=== PATIENT | female | born 1970 | race Caucasian/White ===

== ENCOUNTER 2019-02-16 16:15 | Emergency (ER) | payer OTHER ==
[~2019-02-16] VITALS: Ht 160 cm; Wt 112.0 kg
--- OUTSIDE RECORDS SUMMARY | ~2019-02-16 | XMS | Clinical Summary ---
Demographics + + + | Address | [address] | | | [place] [address] | + + + | Home Phone | | + + + | Preferred Language | Unknown | + + + | Marital Status | Single | + + + | Worship Affiliation | Unknown | + + + | Race | Unknown | + + + | Ethnic Group | Unknown | + + + Author + + + | Author | [facility] | | | and [place] | + + + | Organization | [facility] | | | and [place] | + + + | Address | Unknown | + + + | Phone | Unavailable | + + + Support + + +---------+ + | Name | Relationship | Address | Phone | + + +---------+ + | Brown Wright | ECON | Unknown | | + + +---------+ + Care Team Providers + +------+ + | Care Correspondence Dictator Name | Role | Phone | + +------+ + PP | Unavailable | + +------+ + Allergies + + + + + + | Active Allergy | Reactions | Severity | Noted | Comments | | | | | Date | | + + + + + + | Oxycodone | | | 05/29/20 | | | | | | 11 | | + + + + + + Medications + + + +---------+------+------+-------+ | Medication | Sig | Dispensed | Refills | Star | End | Statu | | | | | | t | Date | s | | | | | | Date | | | + + + +---------+------+------+-------+ | Omeprazole | 20 mg by mouth daily | | 0 | 10/0 | | Activ | | Magnesium (PRILOSEC | | | | 5/20 | | e | | OTC PO) | | | | 12 | | | + + + +---------+------+------+-------+ | sertraline | Take 50 mg by mouth | | 0 | 10/0 | | Activ | | (ZOLOFT) 50 mg | Daily. | | | 5/20 | | e | | tablet | | | | 12 | | | + + + +---------+------+------+-------+ | METFORMIN HCL | 500 mg by mouth | | 0 | 10/0 | | Activ | | | daily | | | 5/20 | | e | | | | | | 12 | | | + + + +---------+------+------+-------+ | COLESTIPOL HCL | as needed | | 0 | 10/0 | | Activ | | | | | | 5/20 | | e | | | | | | 12 | | | + + + +---------+------+------+-------+ | | as needed | | 0 | 10/0 | | Activ | | Fyjadroall-TQAI-Pgyu | | | | 5/20 | | e | | eine (ESGIC PO) | | | | 12 | | | + + + +---------+------+------+-------+ | DiphenhydrAMINE | as needed | | 0 | 10/0 | | Activ | | HCl (BENADRYL PO) | | | | 5/20 | | e | | | | | | 12 | | | + + + +---------+------+------+-------+ | | Take 75-50 mg by | | 0 | 10/0 | | Activ | | triamterene-hydrochl | mouth Daily. | | | 5/20 | | e | | orothiazide | | | | 12 | | | | (MAXZIDE) 75-50 mg | | | | | | | | per tablet | | | | | | | + + + +---------+------+------+-------+ | MAGNESIUM | one by mouth two | | 0 | 10/0 | | Activ | | | times daily | | | 5/20 | | e | | | | | | 12 | | | + + + +---------+------+------+-------+ | Cholecalciferol | one by mouth daily | | 0 | 10/0 | | Activ | | (D-2000 MAXIMUM | | | | 5/20 | | e | | STRENGTH PO) | | | | 12 | | | + + + +---------+------+------+-------+ | Calcium | one by mouth two | | 0 | 10/0 | | Activ | | Carbonate-Vitamin D | times daily | | | 5/20 | | e | | (CALTRATE 600+D PO) | | | | 12 | | | + + + +---------+------+------+-------+ | potassium chloride | Take 8 mEq by mouth | | 0 | 10/0 | | Activ | | (KLOR-CON) 8 MEQ CR | 2 times daily. | | | 5/20 | | e | | tablet | | | | 12 | | | + + + +---------+------+------+-------+ | naproxen sodium | 2 by mouth as needed | | 0 | 10/0 | | Activ | | (ALEVE) 220 MG | | | | 5/20 | | e | | tablet | | | | 12 | | | + + + +---------+------+------+-------+ | ondansetron | as needed | | 0 | 10/0 | | Activ | | (ZOFRAN) 8 MG tablet | | | | 5/20 | | e | | | | | | 12 | | | + + + +---------+------+------+-------+ | metoclopramide | Take 5 mg by mouth 2 | | 0 | 08/2 | | Activ | | (REGLAN) 5 MG tablet | times daily. | | | 01/14 | | e | | | | | | 12 | | | + + + +---------+------+------+-------+ Active Problems + + + | Problem | Noted Date | + + + | HERNIATED CERVICAL DISC | 05/29/2011 | + + + | DEGENERATIVE DISC DISEASE | 05/29/2011 | + + + | HERNIATED LUMBAR DISC | 05/29/2011 | + + + | NAUSEA AND VOMITING | | + + + | HYPERTENSION | | + + + | INTUSSUSCEPTION | | + + + Social History + +-------+ +--------+------+ | Tobacco Use | Types | Packs/Day | Years | Date | | | | | Used | | + +-------+ +--------+------+ | Never Assessed | | | | | + +-------+ +--------+------+ + + + | Sex Assigned at | Date Recorded | | | | + + + | Not on file | | + + + + + + + | Job Start Date | Occupation | Industry | + + + + | Not on file | Not on file | Not on file | + + + + + + + + | Travel History | Travel Start | Travel End | + + + + + + | No recent travel history available. | + + Last Filed Vital Signs + + + + | Vital Sign | Reading | Time Taken | + + + + | Blood Pressure | 120/82 | 05/20/2012 0000 PDT | + + + + | Pulse | - | - | + + + + | Temperature | - | - | + + + + | Respiratory Rate | - | - | + + + + | Oxygen Saturation | - | - | + + + + | Inhaled Oxygen | - | - | | Concentration | | | + + + + | Weight | 100.2 kg (221 lb) | 05/20/2012 0000 PDT | + + + + | Height | 162.6 cm (5' 4") | 05/20/2012 0000 PDT | + + + + | Body Mass Index | 37.93 | 05/20/2012 0000 PDT | + + + + Plan of Treatment + + + + + | Health Maintenance | Due Date | Last Done | Comments | + + + + + | Vaccine: | | | | | Dtap/Tdap/Td (1 - | 7 | | | | Tdap) | | | | + + + + + | Cervical Cancer | | | | | Screening (Pap) | 8 | | | + + + + + | Vaccine: Zoster (1 | | | | | of 2) | 8 | | | + + + + + | Vaccine: Influenza | | | | | (Season Ended) | 9 | | | + + + + + Results Not on filefrom Last 3 Months
--- OUTSIDE RECORDS SUMMARY | ~2019-02-16 | XMS | Encounter Summary ---
Demographics + + + | Address | [address] | | | [place] [address] | + + + | Home Phone | | + + + | Preferred Language | Unknown | + + + | Marital Status | Single | + + + | Church Affiliation | Unknown | + + + | Race | White | + + + | Ethnic Group | Not or | + + + Author + + + | Organization | Unknown | + + + | Address | Unknown | + + + | Phone | Unavailable | + + + Support + + + + + | Name | Relationship | Address | Phone | + + + + + | Brown Wright | MAKSIM | [place] | | + + + + + Care Team Providers + +------+ + | Care Machine Feed Operator Name | Role | Phone | + +------+ + PCP | Unavailable | + +------+ + Encounter Details +--------+ + + + + | Date | Type | Department | Care Team | Description | +--------+ + + + + | 12/17/ | Results | | Other, Faculty | | | 2000 | Only | | [phone] | | +--------+ + + + + Social History + +-------+ [...] recent travel history available. | + + documented as of this encounter Plan of Treatment Not on filedocumented as of this encounter Procedures + +--------+ + + + | Procedure Name | Priori | Date/Time | Associated Diagnosis | Comments | | | ty | | | | + +--------+ + + + | STAFF TO GIVE: PPD | Routin | 12/17/2000 | | Results for this | | | e | 11:24 AM | | procedure are in the | | | | PST | | results section. | + +--------+ + + + documented in this encounter Results STAFF TO GIVE: PPD (12/17/2000 11:24 AM PST) + +-------+ + + + | Component | Value | Ref Range | Performed | Pathologist | | | | | At | Signature | + +-------+ + + + | PPD RESULT | NEG | | [facility] | | + +-------+ + + + + + | Specimen | + + | | + + + + + | Narrative | Performed At | + + + | Ordered by ZZDOC | [facility] | + + + + + + + + | Performing | Address | City/State/Zipcode | Phone Number | | Organization | | | | + + + + + | [facility] | | | | + + + + + | [facility] | [facility] | | | + + + + + documented in this encounter Visit Diagnoses Not on filedocumented in this encounter"
--- OUTSIDE RECORDS SUMMARY | ~2019-02-16 | XMS | Encounter Summary ---
Demographics + + + | Address | [address] | | | [place] [address] | + + + | Home Phone | | + + + | Preferred Language | Unknown | + + + | Marital Status | | + + + | Buddhism Affiliation | Unknown | + + + | Race | Unknown | + + + | Ethnic Group | Unknown | + + + Author + + + | Author | [facility] | + + + | Organization | [facility] | + + + | Address | Unknown | + + + | Phone | Unavailable | + + + Support + + +---------+ + | Name | Relationship | Address | Phone | + + +---------+ + | Brown Wright | ECON | Unknown | | + + +---------+ + | Edgardo Wright | ECON | Unknown | | + + +---------+ + Care Team Providers + +------+ + | Care Emergency Planner Name | Role | Phone | + +------+ + | Vivien Clark MD | PCP | | + +------+ + Reason for Visit + + + | Reason | Comments | + + + | Establish Care | Referral | + + + Encounter Details +--------+ + + + + | Date | Type | Department | Care Team | Description | +--------+ + + + + | 12/22/ | Telephone | [facility] | [place], | [facility] | | 2019 | | [facility] | DO [address] | (Referral) | | | | [address] | [place], [place] | | | | | [place], [place] | [address] | | | | | [address] | | | | | | [phone] | | | +--------+ + + + + Social History + +-------+ +--------+------+ | Tobacco Use | Types | Packs/Day | Years | Date | | | | | Used | | + +-------+ +--------+------+ | Never Smoker | | | | | + +-------+ +--------+------+ + +---+---+---+ | Smokeless Tobacco: | | | | | Never Used | | | | + +---+---+---+ + + +---------+ + | Alcohol Use | Drinks/We | oz/Week | Comments | | | ek | | | + + +---------+ + | No | | | | + + +---------+ + + + + | Sex Assigned at | Date Recorded | | | | + + + | Not on file | | + + + as of this encounter Plan of Treatment Not on fileas of this encounter Visit Diagnoses Not on filein this encounter"
--- OUTSIDE RECORDS SUMMARY | ~2019-02-16 | XMS | Clinical Summary ---
Demographics + + + | Address | [address] | | | [place] [address] | + + + | Home Phone | | + + + | Preferred Language | Unknown | + + + | Marital Status | Single | + + + | Voodoo Affiliation | Unknown | + + + | Race | White | + + + | Ethnic Group | Not or | + + + Author + + + | Author | [facility] | + + + | Organization | [facility] | + + + | Address | Unknown | + + + | Phone | Unavailable | + + + Support + + + + + | Name | Relationship | Address | Phone | + + + + + | Brown Wright | ECON | [place] | | + + + + + Care Team Providers + +------+ + | Care Sales Promotion Representative Name | Role | Phone | + +------+ + | William Robledo DO | PP | | + +------+ + Source Comments BERNADETTE is fully live on both [facility] and [facility] Allergies + + + + + + | Active Allergy | Reactions | Severity | Noted | Comments | | | | | Date | | + + + + + + | Oxycodone-Acetaminop | | | 05/10/20 | | | hen | | | 12 | | + + + + + [...] mg by mouth | | 0 | | | Activ | | (ZOLOFT) 50 mg Oral | once daily. | | | | | e | | Tablet | | | | | | | + + + +---------+------+------+-------+ | omeprazole | Take 20 mg by mouth | | 0 | | | Activ | | magnesium (PRILOSEC | once daily. | | | | | e | | OTC) 20 mg Oral | | | | | | | | Tablet, Delayed | | | | | | | | Release (E.C.) | | | | | | | + + + +---------+------+------+-------+ | ondansetron | Take 8 mg by mouth | | 0 | | | Activ | | (ZOFRAN) 8 mg Oral | as needed. | | | | | e | | Tablet | | | | | | | + + + +---------+------+------+-------+ | metFORMIN 500 mg | Take 500 mg by mouth | | 0 | | | Activ | | Oral Tablet | once daily. | | | | | e | + + + +---------+------+------+-------+ | | Take 1 Tab by mouth | | 0 | | | Activ | | triamterene-hydrochl | once daily. | | | | | e | | orothiazide | | | | | | | | (MAXZIDE) 75-50 mg | | | | | | | | Oral Tablet | | | | | | | + + + +---------+------+------+-------+ | lisinopril 2.5 mg | Take 2.5 mg by mouth | | 0 | | | Activ | | Oral Tablet | once daily. | | | | | e | + + + +---------+------+------+-------+ | MAGNESIUM ORAL | Take by mouth two | | 0 | | | Activ | | | times daily. | | | | | e | + + + +---------+------+------+-------+ | potassium chloride | Take 8 mEq by mouth | | 0 | | | Activ | | SR (KLOR-CON) 8 mEq | once daily. | | | | | e | | Oral Tablet | | | | | | | | Extended Release | | | | | | | + + + +---------+------+------+-------+ | Cholecalciferol, | Take by mouth once | | 0 | | | Activ | | Vitamin D3, (VITAMIN | daily. | | | | | e | | D3) 2,000 unit Oral | | | | | | | | Capsule | | | | | | | + + + +---------+------+------+-------+ | CALCIUM | Take by mouth. | | 0 | | | Activ | | CARBONATE/VITAMIN D3 | | | | | | e | | (CALTRATE 600 + D | | | | | | | | ORAL) | | | | | | | + + + +---------+------+------+-------+ | colestipol 1 gram | Take 1-2 g by mouth | | 0 | | | Activ | | Oral Tablet | once daily. | | | | | e | + + + +---------+------+------+-------+ | naproxen sodium | Take 2 Caps by mouth | | 0 | | | Activ | | (ALEVE) 220 mg Oral | as needed. | | | | | e | | Capsule | | | | | | | + + + +---------+------+------+-------+ Active Problems + + + | Problem | Noted Date | + + + | Abdominal pain | 05/10/2012 | + + + Family History + + +------+ + | Medical History | Relation | Name | Comments | + + +------+ + | Cancer | Father | | prostate and skin | + + +------+ + | Diabetes | Father | | | + + +------+ + | Hypertension | Father | | | + + +------+ + | Additional Family | Mother | | ckd | | History | | | | + + +------+ + | Cancer | Mother | | skin | + + +------+ + | Hypertension | Mother | | | + + +------+ + + +------+--------+ + | Relation | Name | Status | Comments | + +------+--------+ + | Father | | | | + +------+--------+ + | Mother | | | | + +------+--------+ + Social History + +-------+ +--------+------+ | Tobacco Use | Types | Packs/Day | Years | Date | | | | | Used | | + +-------+ +--------+------+ | Never Smoker | | | | | + +-------+ +--------+------+ + + +---------+ + | Alcohol Use | Drinks/Week | oz/Week | Comments | + + +---------+ + | No [...] Filed Vital Signs + + + + + | Vital Sign | Reading | Time Taken | Comments | + + + + + | Blood Pressure | 124/72 | 05/10/2012 8:36 AM | | | | | PDT | | + + + + + | Pulse | 96 | 05/10/2012 8:36 AM | | | | | PDT | | + + + + + | Temperature | - | - | | + + + + + | Respiratory Rate | - | - | | + + + + + | Oxygen Saturation | - | - | | + + + + + | Inhaled Oxygen | - | - | | | Concentration | | | | + + + + + | Weight | 101.2 kg (223 lb) | 05/10/2012 8:36 AM | | | | | PDT | | + + + + + | Height | 162.6 cm (5' 4") | 05/10/2012 8:36 AM | | | | | PDT | | + + + + + | Body Mass Index | 38.28 | 05/10/2012 8:36 AM | | | | | PDT | | + + + + + Plan of Treatment + + + + + | Health Maintenance | Due Date | Last Done | Comments | + + + + + | Influenza (Flu) | | | | | vaccination (Season | 9 | | | | Ended) | | | | + + + + + Results Not on filefrom Last 3 Months Insurance + +--------+ +--------+ + +------+ | Payer | Benefi | Subscriber | Effect | Phone | Address | Type | | | t Plan | ID | brian | | | | | | / | | Dates | | | | | | Group | | | | | | + +--------+ +--------+ + +------+ | BLUE [employer]OSS BLUE | BCBS | [phone] | 09/27/19 | [phone] | [address] | PPO | | SHIELD | OUT OF | x | 08-Pre | 8 | [address] | | | | STATE | | sent | | [place], | | | | | | | | [place] | | | | | | | | [address] | | + +--------+ +--------+ + +------+ + +--------+ +--------+ + + | Guarantor Name | Accoun | Relation to | Date | Phone | Billing Address | | | t Type | Patient | of | | | | | | | | | | + +--------+ +--------+ + + | Meagan Wright | Person | Self [birth year] | [address] | | | al/Fam | | 1970 | [phone] | [place] | | | rob | | | 8 (Home) | [address] | + +--------+ +--------+ + +
--- OUTSIDE RECORDS SUMMARY | ~2019-02-16 | XMS | Encounter Summary ---
Demographics + + + | Address | [address] | | | [place] [address] | + + + | Home Phone | | + + + | Preferred Language | Unknown | + + + | Marital Status | Single | + + + | Buddhist Affiliation | Unknown | + + + [...] + + + + + | Brown Joyner | MAKSIM | [place] | | + + + + + Care Team Providers + +------+ + | Care Senior Validation Engineer Name | Role | Phone | + +------+ + PCP | Unavailable | + +------+ + Encounter Details +--------+ + + + + | Date | Type | Department | Care Team | Description | +--------+ + + + + | / | Transcribed | | Dictation, Other | Transcribed | | 2000 | | | | | +--------+ + + + [...] + + documented as of this encounter Progress Notes Interface, Ocean Forwarder In - 08/23/2006 2:25 AM [facility] and [place] [address] [place], [place] [address] or November 25, 1999 Norma Felton M.D. [address] [place] [address] RE: MONET JOYNER MR #: [id number] Dear Norma: It was a pleasure seeing Monet Joyner today for problems related to infertility and polycystic ovarian syndrome. As you know, she is a 29-year-old women who has done three cycles of donor insemination without success. Her hysterosalpingogram shows a normal cavity and bilateral tubal patency, and a laparoscopy revealed multiple ovarian cysts consistent with polycystic ovarian syndrome. Her cycles are very irregular, every 30-40 days, and she has evidence of increased androgen production, confirming the diagnosis of polycystic ovarian syndrome. We had a long discussion today about the long-term problems associated with polycystic ovarian syndrome. We also discussed potential management plans for the future. I think it would be reasonable to continue clomiphene for a short term, as her chances of conception over the past three cycles were not optimal. She would like to consider clomiphene therapy associated with insemination for the next 3-6 months. I suggested to her that she obtain a mid-cycle scan to assess ovarian response to clomiphene at the time of the LH surge. This will enable us to determine whether a mature preovulatory follicle is forming on clomiphene as well as to assess the endometrial lining. I am hopeful that given her history and workup to date, that she will be able to conceive relatively soon. If not, she is prepared to proceed ahead with gonadotropin therapy in the future. It was a delight seeing this patient. If I can be of any further help or service, please do not hesitate to contact me. Best regards, Judah Meneses M.D. PILAR / [place] [id number] / [id number] / [id number] / [id number] C: 11/27/1999 trang [id number] signed by Interface, Ocean Forwarder In at 08/23/2006 2:25 AM PSTdocume nted in this encounter Plan of Treatment Not on filedocumented as of this encounter Visit Diagnoses Not on filedocumented in this encounter"
--- OUTSIDE RECORDS SUMMARY | ~2019-02-16 | XMS | Encounter Summary ---
Demographics + + + | Address | [address] | | | [place] [address] | + + + | Home Phone | | + + + | Preferred Language | Unknown | + + + | Marital Status | Single | + + + | Adventism Affiliation | Unknown | + + + [...] Team Providers + +------+ + | Care Electronics Engineering Professor Name | Role | Phone | + [...] as of this encounter Progress Notes Interface, Airline Flight Attendant In - 08/23/2006 2:25 AM [facility] and [place] [address] [place], [place] [address] or November 25, 1999 Norma Felton M.D. [address] [place] [address] RE: MONET JOYNER MR #: [id number] Dear Norma: It was a pleasure seeing [...] regards, Judah Meneses M.D. PILAR / [place] [id number] / [id number] / [id number] / [id number] C: 11/27/1999 trang [id number] signed by Interface, Airline Flight Attendant In at 08/23/2006 2:25 AM PSTdocume nted in this encounter Plan of Treatment Not on filedocumented as of this encounter Visit Diagnoses Not on filedocumented in this encounter"
--- OUTSIDE RECORDS SUMMARY | ~2019-02-16 | XMS | Clinical Summary ---
Demographics + + + | Address | [address] | | | [place] [address] | + + + | Home Phone | | + + + | Preferred Language | Unknown | + + + | Marital Status | Single | + + + | Muslim Affiliation | Unknown | + + + | Race | Unknown | + + + | Ethnic Group | Unknown | + + + Author + + + | Author | [facility] | | | and [place] | + + + | Organization | [facility] | | | and [place] | [...] Team Providers + +------+ + | Care Nailhead Setter Name | Role | Phone | + [...] | 10/0 | | Activ | | [id number] | | | | 5/20 | | [...]
--- OUTSIDE RECORDS SUMMARY | ~2019-02-16 | XMS | Clinical Summary ---
Demographics + + + | Address | [address] | | | [place] [address] | + + + | Home Phone | | + + + | Preferred Language | Unknown | + + + | Marital Status | Single | + + + | Sabianism Affiliation | Unknown | + + + [...] | Brown Wright | ECON | [place] | | + + + + + Care Team Providers + +------+ + | Care Gypsum Block Setter Name | Role | Phone | + +------+ + | William Robledo DO | PP | | + +------+ + Source Comments BERNADETTE is fully live on both [facility] and [facility] Allergies + + + + + + [...] | x | 08-Pre | 8 | [address] | | | | STATE | | sent | | [place], | | | | | | | | [place] | | | | | | | | [address] | | + +--------+ +--------+ + +------+ [...] Self | [birth year] | [address] | | | al/Fam | | 1970 | [phone] | [place] | | | rob | | | 8 (Home) | [address] | + +--------+ +--------+ + +
--- OUTSIDE RECORDS SUMMARY | ~2019-02-16 | XMS | Encounter Summary ---
Demographics + + + | Address | [address] | | | [place] [address] | + + + | Home Phone | | + + + | Preferred Language | Unknown | + + + | Marital Status | Single | + + + | Latter Day Affiliation | Unknown | + + + | Race | White | + + + | Ethnic Group | Not or | + + + Author + + + | Author | [facility] | + + + | Organization | [facility] | + + + | Address | Unknown | + + + | Phone | Unavailable | + + + Support + + + + + | Name | Relationship | Address | Phone | + + + + + | Brown Wright | MAKSIM | [place] | | + + + + + Care Team Providers + +------+ + | Care Incinerator Plant Supervisor Name | Role | Phone | + +------+ + | William Robledo DO | PCP | | + +------+ + Encounter Details +--------+ + + + + | Date | Type | Department | Care Team | Description | +--------+ + + + + | 04/14/ | Abstract | [facility] | Clinic, | | | 2012 | | [facility] [address] | Gastroenterology | | | | | [address] | | | | | | Mailcode: Kopperl | | | | | | [facility] and | | | | | | [facility], [address] | | | | | | [facility] [place] | | | | | | [address] | | | | | | [phone] | | | +--------+ + + + [...]
--- OUTSIDE RECORDS SUMMARY | ~2019-02-16 | XMS | Clinical Summary ---
Demographics + + + | Address | [address] | | | [place] [address] | + + + | Home Phone | | + + + | Preferred Language | Unknown | + + + | Marital Status | | + + + | Sikhism Affiliation | Unknown | + + + | Race | Unknown | + + + | Ethnic Group | Unknown | + + + Author + + + | Author | [facility] | + + + | Organization | [facility] | + + + | Address | Unknown | + + + | Phone | Unavailable | + + + Support + + +---------+ + | Name | Relationship | Address | Phone | + + +---------+ + | Brown Joyner | ECON | Unknown | | + + +---------+ + | Edgardo Joyner | ECON | Unknown | | + + +---------+ + Care Team Providers + +------+ + | Care Mobility Developer Name | Role | Phone | + +------+ + | Vivien Clark MD | PP | | + +------+ + Allergies + + + + + + | Active Allergy | Reactions | Severity | Noted | Comments | | | | | Date | | + + + + + + | Prochlorperazine | Other (See Comments) | Medium | 07/04/20 | Keenan hendricksia | | | | | 13 | | + + + + + + | Hydromorphone | Rash | Medium | 07/04/20 | | | | | | 13 | | + + + + + + | Hydrochlorothiazide | Other (See Comments) | Medium | 09/13/20 | N/V | | W-Triamterene | | | 14 | | + + + + + + Current Medications + + +---------+---------+------+------+-------+ | Prescription | Sig. | Disp. | Refills | Star | End | Statu | | | | | | t | Date | s | | | | | | Date | | | + + +---------+---------+------+------+-------+ | omeprazole | Take 20 mg by mouth | | | | | Activ | | (PRILOSEC) 20 MG | daily. | | | | | e | | capsule | | | | | | | + + +---------+---------+------+------+-------+ | Ondansetron HCl | Take 8 mg by mouth. | | | | | Activ | | (ZOFRAN PO) | | | | | | e | + + +---------+---------+------+------+-------+ | gabapentin | 2 caps PO TID with 3 | 270 | 11 | 02/1 | | Activ | | (NEURONTIN) 300 MG | caps (900 mg) at | capsule | | 9/20 | | e | | capsule | HS. Spread by every | | | 16 | | | | | 6 hours. | | | | | | + + +---------+---------+------+------+-------+ | lidocaine | PLACE 3 PATCHES ONTO | 90 | 11 | 05/0 | | Activ | | (LIDODERM) 5 % | THE SKIN 12 HOURS | patch | | 5/20 | | e | | | ON AND 12 HOURS OFF | | | 16 | | | + + +---------+---------+------+------+-------+ | DULoxetine | Take 1 capsule by | 30 | 11 | 05/2 | | Activ | | (CYMBALTA) [address] | mouth daily. | capsule | | /20 | | e | | capsule | | | | 16 | | | + + +---------+---------+------+------+-------+ | | Take 1-2 tablets by | 30 | 0 | /2 | | Activ | | butalbital-acetamino | mouth as needed. | tablet | | 03/16 | | e | | phen-caffeine | Indications: | | | 16 | | | | (ESGIC) 50-325-40 MG | Migraine Headache | | | | | | | per | | | | | | | | tabletIndications: | | | | | | | | Migraine | | | | | | | + + +---------+---------+------+------+-------+ | modafinil | Take 1 tablet by | 30 | 1 | /2 | | Activ | | (PROVIGIL) 200 MG | mouth daily. | tablet | | 03/16 | | e | | tabletIndications: | | | | 16 | | | | Shifting sleep-work | | | | | | | | schedule, affecting | | | | | | | | sleep | | | | | | | + + +---------+---------+------+------+-------+ | zolpidem (AMBIEN) | Take 1 tablet by | 30 | 0 | 09/2 | | Activ | | 10 MG | mouth nightly as | tablet | | 04/15 | | e | | tabletIndications: | needed for Sleep. | | | 16 | | | | Insomnia, | | | | | | | | unspecified type | | | | | | | + + +---------+---------+------+------+-------+ | metFORMIN | Take 500 mg by mouth | | | | | Activ | | (GLUCOPHAGE) 500 MG | 2 (two) times daily | | | | | e | | tablet | with meals. | | | | | | + + +---------+---------+------+------+-------+ | terazosin (HYTRIN) | Take 2 mg by mouth | | | | | Activ | | 1 MG capsule | nightly. | | | | | e | + + +---------+---------+------+------+-------+ | Magnesium Chloride | Take 1 tablet by | | | | | Activ | | (MAG DELAY) 64 MG | mouth daily. | | | | | e | | CR tablet | | | | | | | + + +---------+---------+------+------+-------+ | cholecalciferol | Take 2,000 Units by | | | | | Activ | | (VITAMIN D-3) 1000 | mouth daily. | | | | | e | | UNITS tablet | | | | | | | + + +---------+---------+------+------+-------+ | ascorbic acid | Take 1,000 mg by | | | | | Activ | | (VITAMIN C) 1000 MG | mouth daily. | | | | | e | | tablet | | | | | | | + + +---------+---------+------+------+-------+ | oxycodone 10 MG | Take 1 tablet by | 180 | 0 | 01/0 | | Activ | | tabletIndications: | mouth every 4 (four) | each | | 4/20 | | e | | Arthralgia, | hours as needed | | | 17 | | | | sacroiliac, Lumbar | (breakthrough pain). | | | | | | | radiculitis, Disc | | | | | | | | displacement, | | | | | | | | lumbar, Lumbar | | | | | | | | degenerative disc | | | | | | | | disease, Facet | | | | | | | | arthropathy, lumbar, | | | | | | | | Lumbar facet joint | | | | | | | | pain, Fibromyalgia, | | | | | | | | Sacroiliac joint | | | | | | | | pain, Sciatica of | | | | | | | | right side, Shifting | | | | | | | | sleep-work | | | | | | | | schedule, affecting | | | | | | | | sleep, Degeneration | | | | | | | | of lumbar | | | | | | | | intervertebral disc | | | | | | | + + +---------+---------+------+------+-------+ | oxyCODONE | Take 10 mg by mouth | | | | | Activ | | (OXYCONTIN) 10 MG 12 | every 12 (twelve) | | | | | e | | hr tablet | hours. | | | | | | + + +---------+---------+------+------+-------+ | baclofen | Take 10 mg by mouth | | | | | Activ | | (LIORESAL) 10 MG | as needed. | | | | | e | | tablet | | | | | | | + + +---------+---------+------+------+-------+ | | Take by mouth. | | | | | Activ | | Sennosides-Docusate | | | | | | e | | Sodium (ZAINAB-COLACE | | | | | | | | PO) | | | | | | | + + +---------+---------+------+------+-------+ | metoprolol | Take 1 tablet by | 90 | 3 | 05/0 | | Activ | | (TOPROL-XL) 50 MG 24 | mouth daily. | tablet | | 8/20 | | e | | hr tablet | | | | 17 | | | + + +---------+---------+------+------+-------+ | DULoxetine | Take 40 mg by mouth | | | | | Activ | | (CYMBALTA) [address] | daily. | | | | | e | | capsule | | | | | | | + + +---------+---------+------+------+-------+ Active Problems + + + | Problem | Noted Date | + + + | Tachycardia | 02/01/2017 | + + + | Chronic fatigue | 02/01/2017 | + + + | Abnormal ECG | 02/01/2017 | + + + + + | Overview: IRBBB | + + + + + | Facet arthritis of lumbosacral region | 12/09/2016 | + + + | Lumbar spondylosis | 12/09/2016 | + + + | Hypothyroidism | 02/05/2015 | + + + | Non-restorative sleep | 09/13/2014 | + + + | Shifting sleep-work schedule, affecting sleep | 09/13/2014 | + + + | Sacroiliac joint pain | 10/06/2013 | + + + + + | Last Assessment & Plan: See discussion under lumbar facet | | hypertrophy | + + + + + | Sciatica of right side | 10/06/2013 | + + + | Lumbar radiculitis | 11/07/2012 | + + + + + | Last Assessment & Plan: This patient has MRI documented | | lumbar degenerative disc disease with a large disc protrusion at | | L5-S1 which is eccentric to the left. She also has degenerative | | disc disease with disc bulge at L4-5 with some narrowing of the | | right neural foramen. The patient primarily has back pain | | radiating into her right anterior thigh and into the upper calf. | | She also gets pain into the right lateral thigh and calf at | | times. She has in the past has significant left lower extremity | | pain although this has not been a major problem for some time. | | She has previously undergone epidural steroid injections which | | initially gave her significant relief for 2 or 3 months. Recent | | injections however have provided no relief of her pain. She | | therefore underwent a repeat lumbar MRI which again shows a large | | left eccentric L5-S1 disc protrusion it does have narrowing of | | the right neuroforamen as well. There is also some narrowing at | | L4-5 and the neural foramen. At this time I don't feel further | | injections will likely benefit the patient. I have discussed the | | patient with Dr. René Harden who has agreed to see her in | | surgical consultation. The patient will therefore be referred to | | Dr. René Harden. | + + + + + | Lumbar degenerative disc disease | 11/07/2012 | + + + + + | Last Assessment & Plan: See discussion under lumbar facet | | hypertrophy | + + + + + | Lumbar facet joint pain | 07/15/2012 | + + + | Obesity | 07/15/2012 | + + + | Arthralgia, sacroiliac | 07/15/2012 | + + + + + | Last Assessment & Plan: This patient also has significant | | tenderness over the right sacroiliac joint. Stressing this joint | | however does not significantly increase her pain at this time. I | | therefore think that her pain is more likely radicular in nature. | + + + + + | Fibromyalgia | 07/15/2012 | + + + Encounters +--------+ + + + + | Date | Type | Specialty | Care Team | Description | +--------+ + + + + | 12/22/ | Telephone | | Cash Pablo, | Establish Care | | 2019 | | | DO | (Referral) | +--------+ + + + + from Last 3 Months Family History + + +------+ + | Medical History | Relation | Name | Comments | + + +------+ + | Diabetes | Father | | | + + +------+ + | Heart disease | Father | | | + + +------+ + | Hypertension | Father | | | + + +------+ + | Prostate cancer | Father | | | + + +------+ + | Arthritis | Mother | | | + + +------+ + | Heart disease | Mother | | | + + +------+ + | Hypertension | Mother | | | + + +------+ + | Kidney disease | Mother | | | + + +------+ + | Other (see comments) | Mother | | Problems with anesthesia | + + +------+ + | Stroke | Mother | | SDH after a fall | + + +------+ + | Malig hypertherm | Neg Hx | | | + + +------+ + + +------+--------+ + | Relation | Name | Status | Comments | + +------+--------+ + | Father | | Alive | 85 | + +------+--------+ + | Mother | | Alive | 80 | + +------+--------+ + Social History + [...] on file | | + + + Last Filed Vital Signs + + + + | Vital Sign | Reading | Time Taken | + + + + | Blood Pressure | 122/68 | 04/05/2017 2:22 PM PDT | + + + + | Pulse | 87 | 04/05/2017 2:22 PM PDT | + + + + | Temperature | 36.6 C (97.9 F) | 01/29/2016 7:49 AM PDT | + + + + | Respiratory Rate | 18 | 01/29/2016 7:49 AM PDT | + + + + | Oxygen Saturation | 97% | 04/05/2017 2:22 PM PDT | + + + + | Inhaled Oxygen | - | - | | Concentration | | | + + + + | Weight | 100.6 kg (221 lb | 04/05/2017 2:22 PM PDT | | | 12.8 oz) | | + + + + | Height | 160 cm (5' 3") | 04/05/2017 2:22 PM PDT | + + + + | Body Mass Index | 39.29 | 04/05/2017 2:22 PM PDT | + + + + Plan [...] | + + + + + | Breast Cancer | | | | | Screening | 8 | | | | (Mammogram) | | | | + + + + + | Colon Cancer | | | | | Screening | 8 | | | | (Colonoscopy) | | | | + + + + + | Vaccine: Zoster (1 | | | | | of 2) | 8 | | | + + + + + | Vaccine: Influenza | | | | | (Season Ended) | 9 | | | + + + + + Results Not on filefrom Last 3 Months Insurance + +--------+ +------+-------+---------+ | Payer | Benefi | Subscriber | Type | Phone | Address | | | t Plan | ID | | | | | | / | | | | | | | Group | | | | | + +--------+ +------+-------+---------+ | [employer] | [employer] | [id number] | | | | | | WORK | | | | | + +--------+ +------+-------+---------+ + +--------+ +--------+ + + | Guarantor Name | Accoun | Relation to | Date | Phone | Billing Address | | | t Type | Patient | of | | | | | | | | | | + +--------+ +--------+ + + | MONET JOYNER | Person | Self [birth year] Home: | [address] | | | al/Fam | | 1970 | [phone] | [place] | | | rob | | | [phone] | + +--------+ +--------+ + +
--- OUTSIDE RECORDS SUMMARY | ~2019-02-16 | XMS | Encounter Summary ---
Demographics + + + | Address | [address] | | | [place] [address] | + + + | Home Phone | | + + + | Preferred Language | Unknown | + + + | Marital Status | Single | + + + | Tenriism Affiliation | Unknown | + + + | Race | White | + + + | Ethnic Group | Not or | + + + Author + + + | Author | [facility] | + + + | Organization | [facility] | + + + | Address | Unknown | + + + | Phone | Unavailable | + + + Support + + + + + | Name | Relationship | Address | Phone | + + + + + | Brown Wright | MAKSIM | [place] | | + + + + + Care Team Providers + +------+ + | Care Medical Secretary Name | Role | Phone | + +------+ + | William Robledo DO | PCP | | + +------+ + Reason for Visit + + + | Reason | Comments | + + + | New patient | | | consultation | | + + + Encounter Details +--------+---------+ + + + | Date | Type | Department | Care Team | Description | +--------+---------+ + + + | 05/10/ | Office | Rheumatology at | Bebo Powell MD | Abdominal pain | | 2011 | Visit | Sharon Olson | [address] [facility] | | | | | [address] | [address], | | | | | [facility] | [place] [address] | | | | | Mailcode: [id number] | [phone] | | | | | [facility] [address], | | | | | | [address]th Floor | | | | | | [place], [place] | | | | | | [address] | | | | | | [phone] | | | +--------+---------+ + + + Social History + +-------+ [...] + + documented as of this encounter Last Filed Vital Signs + + + [...] + + + documented in this encounter Progress Notes Bebo Powell MD - 05/10/2012 8:30 AM PDTFormatting of this note might be different from t he original. RHEUMATOLOGY NEW PATIENT CONSULT This consultation was requested by: William Robledo DO [address] [place] [address] fax: [phone] CC: Chief Complaint Patient presents with New patient consultation HPI: This is a 41 y.o. female, here for consultation from William Robledo DO regarding diagnos is, and possible change in therapy for vasculitis. She has been symptomatic since the middle of December 2011. It started with ankle swelling and nausea and she was found to have faisal BP . This was followed by vomiting and salt craving and pain in the right elbow, probably from a tennis elbow. EGD in January showed gastritis, esophagitis and a hiatal hernia. Treatment for this did not help. In late January she was admitted for dehydration from vomiting and had low K and Mg. Intussusception was suspected but not proved. They tried prednisone suspecting vascu litis. She was better for 2 days but went back to the original state later.She had no nausea and vomiting for these days. She gets these symptoms in a cyclical manner and the timing of the prednisone likely was a coincidence. She had recurrence of low K and Mg and another rock dianne ruled out intussusception and carcinoid. Since then she has had repeated episodes of na usea and vomiting that come and go in a cyclical fashion. In addition, she has facial flushing, eyelid twitches, heat intolerance, abdominal cramps a nd diarrhea, tachycardia and elevated BP (dp). No photosensitivity, sores, dry mouth or eyes, Raynaud's phenomenon, serositis, low white c ell counts and proteinuria or seizures. No skin lesions except in the past that were treated with steroids and that went away. No s ignificant abdominal pain except sometimes in the epigastric region. No skin lesions in the leg. She has some tinging in the perioral area but no symptoms suggestive of peripheral neur opathy. No fever; weight loss from vomiting. No renal issues, no pulmonary issues. She has P VC's. No muscle weakness or symptoms localized to one area. No blood clots. No knee pain. She has pain in the back for a couple of years. Right elbow pain from tennis elbow. The lef t foot hurts and has been treated with plantar fasciotomy. Never had several joints affected at the same time. Fatigue + ROS: General: No constitutional symptoms of weakness, fevers; occasional night sweats. Eyes: No changes in visual acuity, diplopia or amaurosis, no discharge, matting, redness, tearing or eye pain. Ears/Nose/Throat: No sore throat, dental pain, hoarseness, dysphagia, oral or tongue lesio ns. No history of hearing loss, ear pain, tinnitus or aural discharge. CVS: No chest pain, leg swelling; palpitations occasional. Respiratory: No shortness of breath, cough, or pain with breathing. Gastrointestinal: As above; no dysphagia, change in bowel habits or black or bloody stools . Internal Hemorrhoids in the past Musculoskeletal: As above. Neurologic: No symptoms of neurological impairment or TIAs; no amaurosis, diplopia, dysphas ia, or unilateral disturbance of motor or sensory function. No loss of balance or vertigo. Heme/Lymphatic: No abnormal bruising, abnormal bleeding or enlarged lymph nodes. Skin: As above PMH: Past Medical History Diagnosis Date Hypertension Polycystic ovarian disease Type II or unspecified type diabetes mellitus without mention of complication, not stat ed as uncontrolled GERD (gastroesophageal reflux disease) Migraine Spontaneous Closed fracture of unspecified bone Depression PSH: Past Surgical History Procedure Date Tonsillectomy Appendectomy Cholecystectomy Hernia repair Carpal tunnel release Shoulder surgery Finger trigger release Fasciectomy plantar fascia Laparoscopy ovarian cystectomy Meds: Current Outpatient Prescriptions Medication Sig CALCIUM CARBONATE/VITAMIN D3 (CALTRATE 600 + D ORAL) Take by mouth. Cholecalciferol, Vitamin D3, (VITAMIN D3) 2,000 unit Oral Capsule Take by mouth once d aily. colestipol 1 gram Oral Tablet Take 1-2 g by mouth once daily. lisinopril 2.5 mg Oral Tablet Take 2.5 mg by mouth once daily. MAGNESIUM ORAL Take by mouth two times daily. metFORMIN 500 mg Oral Tablet Take 500 mg by mouth once daily. naproxen sodium (ALEVE) 220 mg Oral Capsule Take 2 Caps by mouth as needed. omeprazole magnesium (PRILOSEC OTC) 20 mg Oral Tablet, Delayed Release (E.C.) Take 20 m g by mouth once daily. ondansetron (ZOFRAN) 8 mg Oral Tablet Take 8 mg by mouth as needed. potassium chloride SR (KLOR-CON) 8 mEq Oral Tablet Extended Release Take 8 mEq by mouth once daily. sertraline (ZOLOFT) 50 mg Oral Tablet Take 50 mg by mouth once daily. triamterene-hydrochlorothiazide (MAXZIDE) 75-50 mg Oral Tablet Take 1 Tab by mouth once daily. Allergies: Percocet Social History: Meagan reports that she has never smoked. She does not have any smokeless t obacco history on file. She reports that she does not drink alcohol or use illicit drugs. Vaccinations: There is no immunization history on file for this patient. FH: family history includes Additional Family History in her mother (ckd); Cancer in her fa ther (prostate and skin) and mother (skin); Diabetes in her father; and Hypertension in her father and mother. Rapid 3 MHAQ: 1.7 (05/10/12799) PAIN LEVEL: 6 (05/10/12799) GLOBAL ASSESSMENT: 5 (05/10/12799) RAPID 3: 4.23 (05/10/12799) Exam: Vital Signs: BP 124/72 | Pulse 96 | Ht 1.626 m (5' 4") | Wt 101.152 kg (223 lb) | BMI 38.28 kg/(m^2) Pain Score: Gen: obese, well developed, in NAD HEENT: PERRLA, EOMI, O/P clear, no facial rash or alopecia Neck: supple, no lymphadenopathy, FROM Lungs: clear to ausculation bilaterally CVS: S1S2, RRR, no murmurs, rubs or gallops Abd: normal BS, soft, NT, ND Ext: no clubbing, cyanosis or edema M/S: no synovitis; joint tenderness over the shoulders, and lateral epicondyle of the right elbow; full ROM throughout joints of upper and lower extremities Skin: no abnormalities Neuro: CN intact, sensory exam intact, strength full, Outside labs: Outside labs: TSH 4.68, Vitamin D 21, UA normal, CMP normal, PINA, CARISSA, ANCA, Anti-MPO and anti-PR3 antibodies negative. CRP 21, C3, C4 normal, CBC normal Impression: This is a 41 y.o. female, here for evaluation of vasculitis. She denies symptom s suggestive of vasculitis and these include fever, unexplained weight loss, generalized analilia nt and muscle symptoms, peripheral neuropathy, abdominal pain, vasculitic skin rash, pulmona ry symptoms like cough and hemoptysis, etc. She might have had some relief in her symptoms o f nausea and vomiting with prednisone but the response was transient and might have coincide d with the trough given the cyclical nature of her symptoms. Her serologies have been negati ve and I do not think that it will be a good idea to repeat them as it will add to the cost of her treatment and even if one of them is positive, then, in the absence of her symptoms, we would not be treating the lab results. I do not think that she has an autoimmune disorder that would explain her symptoms. I reviewed the patient s questionnaire which included more than 10 review of systems, ans wered all questions raised, and provided counseling and education. Recommendations: 1. In todays clinic, I reviewed the patient's new visit questionnaire, past medical history , a 10 systems review, side-effect profile of medications etc. I spent 45 minutes with the patient in a [id number] meeting and >50% time was spent in medically indicated counseling, and education. I have also answered all the questions raised. 2. Continue current medications. 3. Review as needed. Denise mented in this encounter Plan of Treatment Not on filedocumented as of this encounter Procedures + +--------+ + + + | Procedure Name | Priori | Date/Time | Associated Diagnosis | Comments | | | ty | | | | + +--------+ + + + | LAB REPORTS | | 05/10/2012 | | Results for this | | | | 12:00 AM | | procedure are in the | | | | PDT | | results section. | + +--------+ + + + documented in this encounter Results LAB REPORTS (05/10/2012 12:00 AM PDT) + + + | Narrative | Performed At | + + + | | | + + + + + | Transcriptions | + + | JoA-nn Catalan - 06/10/2012 9:54 AM PDT | + + documented in this encounter Visit Diagnoses + + | Diagnosis | + + | Abdominal pain Abdominal pain, unspecified site | + + documented in this encounter
--- OUTSIDE RECORDS SUMMARY | ~2019-02-16 | XMS | Encounter Summary ---
Demographics + + + | Address | [address] | | | [place] [address] | + + + | Home Phone | | + + + | Preferred Language | Unknown | + + + | Marital Status | | + + + | Episcopal Affiliation | Unknown | + + + | Race | Unknown | + + + | Ethnic Group | Unknown | + + + Author + + + | Author | [facility] | + + + | Organization | [facility] | + + + | Address | [...] Team Providers + +------+ + | Care Information Systems Security Analyst Name | Role | Phone | + [...] + + | 12/22/ | Telephone | [facility] | Cash Pablo, | [facility] | | 2019 | | [facility] | DO [address] | (Referral) | | | | [address] | [place], [place] | | | | | [place], [place] | [address] | | | | | [address] | | | | | | [phone] | | | +--------+ + + + [...]
--- OUTSIDE RECORDS SUMMARY | ~2019-02-16 | XMS | Clinical Summary ---
Demographics + + + | Address | [address] | | | [place] [address] | + + + | Home Phone | | + + + | Preferred Language | Unknown | + + + | Marital Status | | + + + | Gnosticism Affiliation | Unknown | + + + | Race | Unknown | + + + | Ethnic Group | Unknown | + + + Author + + + | Author | [facility] | + + + | Organization | [facility] | + + + | Address | [...] Team Providers + +------+ + | Care Seater Grinder Name | Role | Phone | + [...] +------+-------+---------+ | [employer] | [employer] | [id number] | | | | | | WORK [...] Self | [birth year] | Home: | [address] | | | al/Fam | | 1970 | [phone] | [place] | | | [place] | | | [phone] | [phone] | + +--------+ +--------+ + +
--- OUTSIDE RECORDS SUMMARY | ~2019-02-16 | XMS | Encounter Summary ---
Demographics + + + | Address | [address] | | | [place] [address] | + + + | Home Phone | | + + + | Preferred Language | Unknown | + + + | Marital Status | Single | + + + | Anglican Affiliation | Unknown | + + + [...] Team Providers + +------+ + | Care Spinning Machine Operator Name | Role | Phone | + +------+ + PCP | Unavailable | + +------+ + Encounter Details +--------+ + + + + | Date | Type | Department | Care Team | Description | +--------+ + + + + | 12/17/ | Results | | Other, Faculty | | | 2000 | Only | | [phone] | | +--------+ + + + + [...]
--- OUTSIDE RECORDS SUMMARY | ~2019-02-16 | XMS | Encounter Summary ---
Demographics + + + | Address | [address] | | | [place] [address] | + + + | Home Phone | | + + + | Preferred Language | Unknown | + + + | Marital Status | Single | + + + | Orthodoxy Affiliation | Unknown | + + + | Race | White | + + + | Ethnic Group | Not or | + + + Author + + + | Author | [facility] | + + + | Organization | [facility] | + + + | Address [...] Team Providers + +------+ + | Care Line Fixer Name | Role | Phone | + [...] 2011 | Visit | Sharon Olson | [address] [facility] | | | | | [address] | [address], | | | | | [facility] | [place] [address] | | | | | Mailcode: OP09 | [phone] | | | | | [facility] [place], | | | | | | 4th Floor | | | | | | [place], [place] | | | | | | [address] | | | | | | [phone] | | | +--------+---------+ + + + [...] consultation was requested by: William Robledo DO [address] [place] [address] fax: [phone] CC: Chief Complaint Patient presents with New [...] 45 minutes with the patient in a pcgm-zo-ernk meeting and >50% time was spent in [...] + | Transcriptions | + + | Jo-Ann Catalan - 06/10/2012 9:54 AM PDT | + + documented in this encounter Visit Diagnoses + + | Diagnosis | + + | Abdominal pain Abdominal pain, unspecified site | + + documented in this encounter
--- OUTSIDE RECORDS SUMMARY | ~2019-02-16 | XMS | Encounter Summary ---
Demographics + + + | Address | [address] | | | [place] [address] | + + + | Home Phone | | + + + | Preferred Language | Unknown | + + + | Marital Status | Single | + + + | Zoroastrianism Affiliation | Unknown | + + + | Race | White | + + + | Ethnic Group | Not or | + + + Author + + + | Author | [facility] | + + + | Organization | [facility] | + + + | Address | Unknown | + + + | Phone | Unavailable | + + + Support + + + + + | Name | Relationship | Address | Phone | + + + + + | Brown Wright | MAKSIM | [place] | | + + + + + Care Team Providers + +------+ + | Care Buffer Operator Name | Role | Phone | + +------+ + | William Robledo DO | PCP | | + +------+ + Encounter Details +--------+ + + + + | Date | Type | Department | Care Team | Description | +--------+ + + + + | 04/14/ | Abstract | [facility] | Clinic, | | | 2012 | | [facility] | Gastroenterology | | | | | MANAV Galan | | | | | | Mailcode: [place] | | | | | | [facility] | | | | | | [facility], [address] | | | | | | [facility] [place] | | | | | | [address] | | | | | | [phone] | | | +--------+ + + + [...]
[~2019-02-16 16:15] MED LIST: ALEVE220 MG PO; AMBIEN10 MG PO; BACLOFEN10 MG PO; BENADRYL25 MG PO; CYMBALTA60 MG PO; DILAUDID4 MG PO; ESGIC PLUS CAP1 EACH PO; FIORICET 50-301 EACH PO; FIORINAL 50-321 EACH PO; GABAPENTIN300 MG PO; GABAPENTIN600 MG PO; GLUCOPHAGE500 MG PO; GRALISE600 MG PO; HYDROCHLOROTHIA25 MG PO; HYDROCODON-ACE1 EAC8 PO; KLOR-CON 88 MEQ PO; LASIX40 MG PO; LEVOTHYROXINE125 MCG PO; LEVOXYL25 MCG PO; LIDODERM700 MG TOP; LYRICA150 MG PO; MAG DELAY64 MG PO; MAG-OXIDE400 MG PO; MAGBID ER84 MG PO; MAGNESIUM30 MG PO; MAXZIDE 75 MG-501 EA PO; MELOXICAM15 MG PO; METFORMIN HCL500 M1 PO; METFORMIN HCL500 MG PO; METOPROLOL SUCC50 MG PO; METOPROLOL TART50 MG PO; MORPHINE SULFAT15 MG PO; OMEPRAZOLE20 MG PO; OXYCODONE HCL20 M1 PO; OXYCODONE HCL5 MG PO; OXYMORPHONE HCL10 MG PO; PRILOSEC20 MG PO; PROCHLORPERAZIN10 MG PO; PROMETHAZINE HC25 M1 PO; PROTONIX40 MG PO; SPRINTEC1 EACH PO; TERAZOSIN HCL2 MG PO; TORADOL10 MG PO; VISTARIL25 MG PO; VITAMIN D-32000 UNIT PO; VITAMIN D32000 UNIT PO; ZOFRAN ODT4 MG SL; ZOFRAN8 MG PO; ZOLOFT25 MG PO
--- OUTSIDE RECORDS SUMMARY | 2019-02-16 16:18 | XMS ---
PreManage Notification: MONET JOYNER Security Steward/Stewardess Third Events No recent Security Events currently on file [facility] There are no care providers on record at this time. Nany has no Care Guidelines for this patient. Lefty VISIT COUNT (12 MO.) 1 ELISA [place] TOTAL 1 NOTE: Visits indicate total known visits. ED/UCC VISIT TRACKING (12 MO.) 02/16/2019 16:15 [facility] [place] TYPE: Emergency COMPLAINT: - ABDOMINAL PAIN INPATIENT VISIT TRACKING (12 MO.) No inpatient visits to display in this time frame [email or web address]
[2019-02-16] MEDS ORDERED: AMITRIPTYLINE H25 MG PO (16:35)
[2019-02-16] MEDS ORDERED: VICTOZA 2-0.6 MG/0.1 SUB-Q (16:35)
[2019-02-16] MEDS ORDERED: TRAZODONE HCL100 MG PO (16:35)
== END 2019-02-16 20:57 | disposition home or self-care (01) ==
LOC: ED 16:15
DX: R10.10 Upper abdominal pain, unspecified (principal); R11.2 Nausea with vomiting, unspecified; E11.9 Type 2 diabetes mellitus without complications; I10 Essential (primary) hypertension; Z90.49 Acquired absence of other specified parts of digestive tract; Z88.5 Allergy status to narcotic agent; Z88.8 Allergy status to other drugs, medicaments and biological substances; Z79.84 Long term (current) use of oral hypoglycemic drugs; Z79.899 Other long term (current) drug therapy
CPT/HCPCS: 74177; 80053; 81001; 83690; 83735; 85025; 96361; 99284-25; C9113; J2405; J2765; J3475; J7030; Q9967

== ENCOUNTER 2020-08-15 12:37 | Day surgery (SDC) | payer OTHER ==
[~2020-08-15] VITALS: Ht 160 cm; Wt 107.3 kg
[~2020-08-15 12:37] MED LIST changes: +AMITRIPTYLINE H25 MG PO; +TRAZODONE HCL100 MG PO; +VICTOZA 2-0.6 MG/0.1 SUB-Q
[2020-08-15] MEDS ORDERED: PERCOCET 10-321 EACH PO (13:01)
[2020-08-15] MEDS ORDERED: TRULICITY0.75 MG/0. (13:02)
[2020-08-15] MEDS ORDERED: WELLBUTRIN XL150 MG PO (13:03)
[2020-08-15] MEDS ORDERED: MELOXICAM7.5 MG PO (13:03)
[2020-08-15] MEDS ORDERED: BUPRENORPHINE1 EAC4 TD (13:04)
--- NOTE | 2020-08-15 18:08 | NUR ---
08/15/20 180 Radha Padron 1805- PT TO PACU IN LL POSITION. EYES OPEN RESPONDS TO COMMANDS APPROPRIATELY. DROWSY. BREATHING EASY AND UNLABORED. SPO2 >95% ON ROOM AIR. PT ENCOURAGED TO PASS GAS AND EDUCATED ON THE POC FOR PACU.
--- NOTE | 2020-08-19 08:12 | OR ---
[facility] [address], [place] [address] Signed DATE OF OPERATION: 08/15/2020 SURGEON: Mendoza Duncan MD PREOPERATIVE DIAGNOSES: 1. Abdominal bloating, history of diverticulitis. 2. Longstanding gastroesophageal reflux with episodic dysphagia. POSTOPERATIVE DIAGNOSES: 1. Normal-appearing esophagus; hiatal hernia, mild antral gastritis. 2. Diverticular changes of sigmoid colon, otherwise normal. PROCEDURE: 1. Esophagogastroduodenoscopy with biopsy. 2. Total colonoscopy to cecum with biopsy of cecum and rectum. ANESTHESIA: Intravenous sedation, fentanyl 150 mcg, Versed 12 mg total. 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 Fatuma Amin and SUNIL Ayala. She is known to me from the past as well. She has had complaints of abdominal pain, bloating and has had at least one episode of diverticulitis treated with antibiotics. Additionally, she has had longstanding reflux symptoms and has occasional dysphagia, though this is not progressive. She is admitted at this time to undergo upper endoscopy and colonoscopy on the basis of her symptoms. She understands the risks of bleeding, infection, and perforation, and wished to proceed. FINDINGS: Upper endoscopy showed a hiatal hernia, but no sign of esophagitis and certainly no stricture. There was no evidence of the eosinophilic esophagitis. Stomach had mild antral gastritis. CLOtest was negative. On colonoscopy, the prep was adequate. Complete colonoscopy was undertaken of the cecum. Multiple attempts to intubate the ileum were unsuccessful. She had diverticular changes in the sigmoid and left colon, but no sign of polyps or colitis. PROCEDURE IN DETAIL: The patient was brought to the endoscopy suite and placed in lateral decubitus position Electronically Signed By: MENDOZA DUNCAN MD 08/19/20 0812 PATIENT NAME: MONET JOYNER OPERATIVE REPORT DATE OF : 66 REPORT #: [id number] PHYSICIAN: MENDOZA DUNCAN MD PCP: SHANIQUE OCONNELL PAC REPORT IS CONFIDENTIAL AND NOT TO BE RELEASED WITHOUT AUTHORIZATION [facility] [address], [place] [address] Signed after undergoing topical Hurricaine spray hypopharyngeal anesthesia. A bite block was placed. She was given intravenous sedation to the point of slurred speech and nystagmus with full cardiopulmonary monitoring. An Olympus video upper endoscope was passed in the hypopharynx. The vocal cords appeared normal. Scope was advanced to the esophagus throughout its length. It was normal. Scope was passed to the stomach, which was insufflated with air. There was some bilious fluid within the stomach. No retained food, however. Antral motility appeared normal. The antrum had mild inflammation. The pylorus was normal. Scope was passed through into the duodenum. Duodenum was normal. Biopsies were obtained. The scope was withdrawn. A biopsy was then taken of the antrum for both SHAYNE and pathologic testing. Retroflexed view was undertaken showing a hiatal hernia and poor flap valve. The scope was withdrawn to the distal esophagus, which was entirely normal in its mucosal appearance. Biopsies were obtained nevertheless. There was no sign of stricture varices, Maharaj's epithelium, or other problem. Scope was withdrawn. Midesophageal biopsies were obtained to assess for eosinophilic esophagitis. The scope was removed. Plans were then made for colonoscopy. Additional sedation was given. Digital rectal examination was normal. An Olympus video colonoscope was passed in the rectum and manipulated throughout the colon noting diverticular change of the sigmoid and left colon. Scope was ultimately passed to the cecum. The ileocecal valve and appendiceal orifice were normal. Attempts were made to intubate the ileum, but they were unsuccessful despite multiple attempts to do so. Biopsies were taken of the cecum. The scope was then carefully withdrawn. Examination throughout showed only diverticular changes of the sigmoid. Biopsies were taken of the rectum to assess for occult colitis. The scope was removed. The patient taken to the recovery room in good condition. CONCLUDING DIAGNOSIS: 1. Clinical gastroesophageal reflux and dysphagia, but without sign of esophageal stricture or esophagitis. Biopsies are pending. I would recommend continued use of omeprazole. 2. Antral gastritis, uncertain etiology. Maintain omeprazole for that as well. 3. Regarding colon, we would recommend high-fiber diet related to diverticular changes. We will await the biopsies to assess for occult colitis, however, unlikely that might be. PLAN: She will follow up with us in the future as needed. She will return to the ongoing care of Dr. Amin and Dunia, elian. We will see her back in the office in 4 weeks to review her symptoms and her pathology reports. Electronically Signed By: MENDOZA DUNCAN MD 08/19/20 0812 PATIENT NAME: MONET JOYNER OPERATIVE REPORT DATE OF : 66 REPORT #: [id number] PHYSICIAN: MENDOZA DUNCAN MD PCP: SHANIQUE OCONNELL PAC REPORT IS CONFIDENTIAL AND NOT TO BE RELEASED WITHOUT AUTHORIZATION [address] [address] Signed MD JONI Mann/WILMAL /[id number] cc: MD Ariel Diaz PA-C Copies: COTY AMIN MD ~ Electronically Signed By: MENDOZA DUNCAN MD 08/19/2012 PATIENT NAME: MONET JOYNER OPERATIVE REPORT DATE OF : 66 REPORT #: [id number] PHYSICIAN: MENDOZA DUNCAN MD PCP: SHANIQUE OCONNELL PAC REPORT IS CONFIDENTIAL AND NOT TO BE RELEASED WITHOUT AUTHORIZATION
--- NOTE | 2020-08-19 16:58 | PATH ---
[facility] [address] [place], [place] [address] Signed SPECIMEN(S): A DUODENUM SPECIMEN(S): B ANTRUM/PYLORUS SPECIMEN(S): C LOWER ESOPHAGUS SPECIMEN(S): D MIDDLE ESOPHAGUS SPECIMEN(S): E CECUM SPECIMEN(S): F RECTUM SPECIMEN SOURCE: A. DUODENUM B. ANTRUM/PYLORUS C. LOWER ESOPHAGUS D. MIDDLE ESOPHAGUS E. CECUM F. RECTUM CLINICAL HISTORY: Dysphagia, GERD. DX: Mild gastritis, hiatal hernia/. MICROSCOPIC DESCRIPTION: Histologic sections of all submitted blocks are examined by light microscopy. These findings, together with the gross examination, support the pathologic diagnosis. FINAL PATHOLOGIC DIAGNOSIS: A. Duodenum, biopsy: - Duodenal mucosa with no histopathologic abnormality. - Negative for increased intraepithelial lymphocytes. - Negative for dysplasia or malignancy. B. Stomach, antrum/pylorus, biopsy: - Antral mucosa with reactive gastropathy and chronic, inactive gastritis with focal eosinophils, see comment. - Negative for Helicobacter organisms, see Comment. - Negative for dysplasia or malignancy. C. Esophagus, lower, biopsy: - Squamous mucosa with minimal reactive changes. - Negative for intestinal metaplasia, dysplasia, or malignancy. D. Esophagus, middle, biopsy: - Squamous mucosa with no histopathologic abnormality. - Fragment of eroded oxyntic type mucosa with chronic, inactive gastritis, see Comment. - Negative for Helicobacter organisms on HE stain. - Negative for dysplasia or malignancy. PATIENT NAME: JOYNERMONETMaurice BANKS PATHOLOGY DATE OF : 66 REPORT #: [id number] PHYSICIAN: [facility] PATHOLOGY PCP: SHANIQUE OCONNELL PAC REPORT IS CONFIDENTIAL AND NOT TO BE RELEASED WITHOUT AUTHORIZATION [facility] [address] [place], [place] [address] Signed E. Colon, cecum, biopsy: - Colonic mucosa with no histopathologic abnormality. - Negative for active, chronic, or microscopic colitis. - Negative for dysplasia or malignancy. F. Rectum, biopsy: - Colorectal mucosa with no histopathologic abnormality. - Negative for active or chronic proctitis. - Negative for dysplasia or malignancy. COMMENT: Regarding specimen B: An H. pylori immunohistochemical stain (with appropriately staining controls) is negative for Helicobacter organisms. 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 Correlation with endoscopic findings is recommended. NAL:cml:C2NR GROSS DESCRIPTION: Six specimens are received in six containers, labeled "LT." A. The specimen, labeled "LT, 1," and designated on the requisition "duodenum," is received in formalin and consists of one rollins soft tissue fragment that measures 0.5 cm in greatest dimension. The specimen is entirely submitted in cassette (A1). B. The specimen, labeled "LT, 2," and designated on the requisition "antrum/pylorus," is received in formalin and consists of two rollins soft tissue fragments that measure 0.3 cm in greatest dimension. The specimen is entirely submitted in cassette (B1). C. The specimen, labeled "LT, 3," and designated on the requisition "lower esophagus," is received in formalin and consists of one rollins soft tissue fragment that measures 0.3 cm in greatest dimension. The specimen is entirely submitted in cassette (C1). D. The specimen, labeled "LT, 4," and designated on the requisition "middle esophagus," is received in formalin and consists of two rollins soft tissue fragments that measure 0.1-0.3 cm in greatest dimension. The specimen is entirely submitted in cassette (D1). Note: Smaller fragment is minute and may not survive processing. E. The specimen, labeled "LT, 5," is received in formalin and consists of one rollins soft tissue fragment that measures 0.3 cm in greatest dimension. The specimen is entirely submitted in cassette (E1). PATIENT NAME: MONET JOYNER PATHOLOGY DATE OF : 66 REPORT #: [id number] PHYSICIAN: VETO MARQUEZ PCP: SHANIQUE OCONNELL PAC REPORT IS CONFIDENTIAL AND NOT TO BE RELEASED WITHOUT AUTHORIZATION [facility] [address] [place], [place] [address] Signed F. The specimen, labeled "LT, 6," and designated on the requisition "rectum," is received in formalin and consists of two rollins soft tissue fragments that measure 0.3 cm in greatest dimension. The specimen is entirely submitted in cassette (F1). AT (under the direct supervision of a pathologist) The Gross Description was prepared using a voice recognition system. The report was reviewed for accuracy; however, sound-alike word errors, addition and/or deletions may occur. If there is any question about this report, please contact Client Services. ADDITIONAL NOTES: Immunohistochemical and/or in situ hybridization studies were performed on this case with the appropriate positive controls that react as expected. This test was developed and its performance characteristics determined by [facility]. It has not been cleared or approved by the U.S. Food and Drug Administration. The FDA has determined that such clearance or approval is not necessary. This test is used for clinical purposes. It should not be regarded as investigational or for research. [facility] is certified under the Clinical Laboratory Improvement Amendments of 1988 (CLIA) as qualified to perform high complexity clinical laboratory testing. PERFORMING LABORATORY: The technical component was performed by [facility], [address] [place] [address] (Deaf And Hard Of Hearing Teacher: Cyndi Zamora MD; CLIA# [id number]). [facility], [address] [place] [address] (CLIA# [id number]). Diagnostician: Kim Hewitt MD Pathologist Electronically Signed 08/19/2020 Copies: ~ PATIENT NAME: MONET JOYNER PATHOLOGY DATE OF : 66 REPORT #: [id number] PHYSICIAN: VETO MARQUEZ PCP: SHANIQUE OCONNELL PAC REPORT IS CONFIDENTIAL AND NOT TO BE RELEASED WITHOUT AUTHORIZATION
== END 2020-08-15 18:35 | disposition home or self-care (01) ==
LOC: OPS 12:37 → DS 12:38 → OPS 14:00
PROVIDERS: ATTEND Surgery
PROC: 0DB98ZX Excision of Duodenum, Via Natural or Artificial Opening Endoscopic, Diagnostic (ICD-10-PCS; 2020-08-15)
PROC: 0DB78ZX Excision of Stomach, Pylorus, Via Natural or Artificial Opening Endoscopic, Diagnostic (ICD-10-PCS; 2020-08-15)
PROC: 0DB28ZX Excision of Middle Esophagus, Via Natural or Artificial Opening Endoscopic, Diagnostic (ICD-10-PCS; 2020-08-15)
PROC: 0DB38ZX Excision of Lower Esophagus, Via Natural or Artificial Opening Endoscopic, Diagnostic (ICD-10-PCS; 2020-08-15)
PROC: 0DBH8ZX Excision of Cecum, Via Natural or Artificial Opening Endoscopic, Diagnostic (ICD-10-PCS; principal; 2020-08-15 14:00)
PROC: 0DBP8ZX Excision of Rectum, Via Natural or Artificial Opening Endoscopic, Diagnostic (ICD-10-PCS; 2020-08-15 14:00)
DX: K29.50 Unspecified chronic gastritis without bleeding (principal); K31.9 Disease of stomach and duodenum, unspecified; K57.30 Diverticulosis of large intestine without perforation or abscess without bleeding; K44.9 Diaphragmatic hernia without obstruction or gangrene; K21.9 Gastro-esophageal reflux disease without esophagitis
CPT/HCPCS: 99153; G0500; J2250; J3010; J7121

== ENCOUNTER 2021-02-26 07:05 | Day surgery (SDC) | payer OTHER ==
[~2021-02-26] VITALS: Ht 162.6 cm; Wt 101.8 kg
[~2021-02-26 07:05] MED LIST changes: +BUPRENORPHINE1 EAC4 TD; +MELOXICAM7.5 MG PO; +PERCOCET 10-321 EACH PO; +SLOW-MAG71.5 MG PO; +TIZANIDINE HCL2 M1 PO; +TRULICITY0.75 MG/0.; +WELLBUTRIN XL150 MG PO
--- NOTE | 2021-02-26 10:48 | NUR ---
02/26/21 Zak8 Melina Combs 1041-PATIENT ARRIVED TO PACU ON 6L MASK NONAROUSABLE ORAL AIRWAY IN PLACE. SHALLOW BREATHING. MAINTAINING OWN AIRWAY. SR. IVF INFUSING. ZAINAB PAD WITH MESH UNDERWEAR IN PLACE CDI. PATIENT IS GRIMACING BUT NONAROUSABLE.
--- NOTE | 2021-02-26 11:25 | NUR ---
PT IS BACK TO DS FROM PACU. CALL LIGHT WITHIN REACH. WATER ON BEDSIDE TABLE. PT REPORTS MILD CRAMPING, RATING IT 4/10. NO C/O'S NAUSEA. PT WOULD LIKE PUDDING AND CRACKERS TO SNACK ON.
--- NOTE | 2021-02-26 11:55 | NUR ---
THIS RN IN TO SEE PT. PT RESTING IN BED WITH 2L O2 VIA NC IN PLACE. PT O2 SPOTCHECKED AT RA, ABLE TO MAINTAIN SATS GREATER THAN 94% AND NC IS REMOVED. PT ZAINAB PAD ASSESSED, SCANT DRAINAGE NOTED. PT ENC TO USE CALL LIGHT WITH ANY NEEDS AND DC CRITEIA EXPLAINED. PT TOLERATES PO WELL WITH NO C/O NAUSEA, STATES PAIN IS "TOLERABLE" WHEN ASKED. CALL LIGHT WITHIN REACH, PROVIDED PERSONAL CELL PHONE.
[2021-02-26] MEDS ORDERED: PERCOCET 5-3251 EACH PO (12:04)
[2021-02-26] MEDS ORDERED: IBU800 MG PO (12:04)
--- NOTE | 2021-02-26 12:49 | NUR ---
[id number]: THIS RN OFF OF FLOOR FOR LUNCH. 1245: THIS RN RESUMES CARE OF PT. PT RESTING IN BED ON RIGHT SIDE SLEEPING. PT WAKES WITH THIS RN'S ENTRANCE. PT STATES "NOPE" WHEN ASKED ABOUT PAIN. PT DENIES NAUSEA. PT ASKS "IS THERE ANY WAY TO TURN DOWN THE TEMPERATURE IN HERE?" THIS RN PROVIDES LUCILLE HUGGER ON COOL. PT STATES URGE TO VOID, UP TO SIDE OF BED WITH NO DIZZINESS OR NAUSEA. STEADY GAIT TO BATHROOM, ENC TO PULL CORD IF HELP NEEDED.
--- NOTE | 2021-02-26 12:58 | NUR ---
PT ABLE TO VOID APPROX 100 MLS LIGHT RED URINE WITH NO CLOTS PRESENT. PT BACK TO DS RM 5 TO GET DRESSED, STATES SHE WILL TEXT HER FRIEND FOR SAFE RIDE HOME.
--- NOTE | 2021-02-26 13:32 | NUR ---
[id number]: IV REMOVED WNL AND COBAN APPLIED, ENCOURAGED TO REMOVE IN APPROX 10-15 MINUTES. DC INSTRUCTIONS PRESENTED TO PT AND HARD SCRIPT PROVIDED TO TAKE TO PHARMACY. PT DC VIA WC FROM DS RM 5 TO FRIEND WAITING AT HOSPITAL ENTRANCE TO HOME.
--- NOTE | 2021-02-27 15:17 | PATH ---
[facility] [address] [place], [place] [address] Signed SPECIMEN(S): A ENDOMETRIAL LESION SPECIMEN SOURCE: A. ENDOMETRIAL LESION CLINICAL HISTORY: Hysteroscopy DC. Postmenopausal bleeding. FINAL PATHOLOGIC DIAGNOSIS: Endometrial lesion, biopsy: - Disordered proliferative endometrium. - Fragments of myometrium with associated endometrial glands and stroma, see Comment. - Negative for hyperplasia or malignancy. COMMENT: A few fragments of myometrium demonstrate benign endometrial glands and stroma within the smooth muscle, which could represent tangential sectioning of the endomyometrium or adenomyosis. Clinical correlation required. NAL:NRT:cml:C2NR MICROSCOPIC EXAMINATION: Histologic sections of all submitted blocks are examined by light microscopy. These findings, together with the gross examination, support the pathologic diagnosis. GROSS DESCRIPTION: The specimen, labeled "LT, endometrial lesion," is received in formalin and consists of irregular shaped, membranous and soft, pink-rollins tissue fragments that aggregate measure 3.5 x 3.0 x 0.3 cm. Specimen is entirely submitted in cassettes (A1-A2). JS (under the direct supervision of a pathologist) The Gross Description was prepared using a voice recognition system. The report was reviewed for accuracy; however, sound-alike word errors, addition and/or deletions may occur. If there is any question about this report, please contact Client Services. PERFORMING LABORATORY: The technical component was performed by [facility], [address] [place] [address] (Woods Warden: Cyndi Zamora MD; CLIA# [id number]). PATIENT NAME: MONET JOYNER PATHOLOGY DATE OF : 66 REPORT #: [id number] PHYSICIAN: VETO MARQUEZ PCP: JAVIER JUÁREZ REPORT IS CONFIDENTIAL AND NOT TO BE RELEASED WITHOUT AUTHORIZATION [facility] [address] [place], [place] [address] Signed Professional interpretation [facility], [address] [place] [address] (CLIA# [id number]). Diagnostician: Kim Hewitt MD Pathologist Electronically Signed 02/27/2021 Copies: ~ PATIENT NAME: MONET JOYNER PATHOLOGY DATE OF : 66 REPORT #: [id number] PHYSICIAN: VETO MARQUEZ PCP: JAVIER JUÁREZ REPORT IS CONFIDENTIAL AND NOT TO BE RELEASED WITHOUT AUTHORIZATION
--- NOTE | 2021-02-27 17:47 | OR ---
[facility] [address] [place], [place] [address] Signed DATE OF OPERATION: 02/26/2021 SURGEON: Coty Amin MD PREOPERATIVE DIAGNOSIS: Postmenopausal bleeding. POSTOPERATIVE DIAGNOSIS: Postmenopausal bleeding pending pathology. PROCEDURE: Hysteroscopy resection, endometrial lesions. ANESTHESIA: General LMA. ESTIMATED BLOOD LOSS: 10 mL. DRAINS: None. INDICATIONS AND FINDINGS: The patient is a 50-year-old female, 3, para 1, SAB 2, who has had recent abnormal bleeding. Ultrasound in the office was unable to visualize the fundus well. EMB was not possible. It was felt that hysteroscopy was indicated. She does have multiple risk factors for endometrial hyperplasia and cancer. At the time of surgery, exam under anesthesia revealed an apparently normal size uterus. The adnexa could not be palpated, given her central obesity. The cavity sounded to 9 cm. There was an irregular area on both anterior fundus as well as posterior fundus, though the remaining cavity appeared atrophic. DESCRIPTION OF PROCEDURE: The patient was prepped and draped in the dorsal lithotomy position. A long weighted speculum was placed and an attempt was made to visualize the cervix. This was unsuccessful and the Graves speculum was introduced. The anterior lip of the cervix was then visualized and grasped with a single-tooth tenaculum. The cavity was sounded to 9 cm. The endocervical canal was then dilated to an #8 dilator. Following this, the MyoSure device was placed. The speculum was removed from around the instruments and the procedure was begun. The uterus was evaluated and the irregular areas noted. MyoSure Electronically Signed By: COTY AMIN MD 02/27/21 1747 PATIENT NAME: MONET JOYNER OPERATIVE REPORT DATE OF : 66 REPORT #: [id number] PHYSICIAN: COTY AMIN MD PCP: JAVIER JUÁREZ REPORT IS CONFIDENTIAL AND NOT TO BE RELEASED WITHOUT AUTHORIZATION [facility] [address] [place] [address] Signed Lite was then introduced and the anterior and posterior irregular areas were resected without any difficulty. Following this, the procedure was complete. The instruments removed. The cervix was re-visualized after removal of the tenaculum and there was some bleeding from the right hand tenaculum site, which did not respond to pressure. A [id number] of 0 chromic was placed with good hemostasis. Following this, the patient was taken to the recovery room in good condition. All sponge and needle counts were correct. MD SAPNA Diaz/MODL /[id number] cc: Judith Ash PA-C Copies: ~ Electronically Signed By: COTY AMIN MD 02/27/21 1747 PATIENT NAME: MONET JOYNER OPERATIVE REPORT DATE OF : 66 REPORT #: [id number] PHYSICIAN: COTY AMIN MD PCP: JAVIER JUÁREZ REPORT IS CONFIDENTIAL AND NOT TO BE RELEASED WITHOUT AUTHORIZATION
== END 2021-02-26 13:20 | disposition home or self-care (01) ==
LOC: DS 07:05
PROVIDERS: ATTEND Obstetrics & Gynecology
PROC: 0U5B8ZZ Destruction of Endometrium, Via Natural or Artificial Opening Endoscopic (ICD-10-PCS; principal; 2021-02-26 09:00)
DX: N95.0 Postmenopausal bleeding (principal); N85.9 Noninflammatory disorder of uterus, unspecified; E66.01 Morbid (severe) obesity due to excess calories; E11.9 Type 2 diabetes mellitus without complications; I10 Essential (primary) hypertension; K21.9 Gastro-esophageal reflux disease without esophagitis; G43.909 Migraine, unspecified, not intractable, without status migrainosus; M15.9 Polyosteoarthritis, unspecified; M79.7 Fibromyalgia; F32.9 Major depressive disorder, single episode, unspecified; G47.33 Obstructive sleep apnea (adult) (pediatric); F41.0 Panic disorder [episodic paroxysmal anxiety]; G58.8 Other specified mononeuropathies; G89.29 Other chronic pain; Z88.8 Allergy status to other drugs, medicaments and biological substances; Z79.899 Other long term (current) drug therapy; Z79.84 Long term (current) use of oral hypoglycemic drugs; Z68.41 Body mass index [BMI] 40.0-44.9, adult; Z88.5 Allergy status to narcotic agent
CPT/HCPCS: 00952; J1100; J1885; J2250; J2405; J2704; J3010; J7121

== ENCOUNTER 2024-05-12 05:40 | Day surgery (SDC) | payer OTHER ==
[~2024-05-12] VITALS: Ht 162.6 cm; Wt 95.5 kg
[~2024-05-12 05:40] MED LIST changes: -ALEVE220 MG PO; -AMBIEN10 MG PO; -AMITRIPTYLINE H25 MG PO; -BACLOFEN10 MG PO; -BENADRYL25 MG PO; -BUPRENORPHINE1 EAC4 TD; -CYMBALTA60 MG PO; -DILAUDID4 MG PO; -ESGIC PLUS CAP1 EACH PO; -FIORICET 50-301 EACH PO; -FIORINAL 50-321 EACH PO; -GABAPENTIN300 MG PO; -GABAPENTIN600 MG PO; -GLUCOPHAGE500 MG PO; -GRALISE600 MG PO; -HYDROCHLOROTHIA25 MG PO; -HYDROCODON-ACE1 EAC8 PO; -KLOR-CON 88 MEQ PO; +LACTATED RINGER'S 1,000 ML IV SCH; -LASIX40 MG PO; -LEVOTHYROXINE125 MCG PO; -LEVOXYL25 MCG PO; -LIDODERM700 MG TOP; -LYRICA150 MG PO; -MAG DELAY64 MG PO; -MAG-OXIDE400 MG PO; -MAGBID ER84 MG PO; -MAGNESIUM30 MG PO; -MAXZIDE 75 MG-501 EA PO; -MELOXICAM15 MG PO; -MELOXICAM7.5 MG PO; -METFORMIN HCL500 M1 PO; -METFORMIN HCL500 MG PO; -METOPROLOL SUCC50 MG PO; -METOPROLOL TART50 MG PO; -MORPHINE SULFAT15 MG PO; -OMEPRAZOLE20 MG PO; -OXYCODONE HCL20 M1 PO; -OXYCODONE HCL5 MG PO; -OXYMORPHONE HCL10 MG PO; -PERCOCET 10-321 EACH PO; -PRILOSEC20 MG PO; -PROCHLORPERAZIN10 MG PO; -PROMETHAZINE HC25 M1 PO; -PROTONIX40 MG PO; -SLOW-MAG71.5 MG PO; -SPRINTEC1 EACH PO; -TERAZOSIN HCL2 MG PO; -TIZANIDINE HCL2 M1 PO; -TORADOL10 MG PO; -TRAZODONE HCL100 MG PO; -TRULICITY0.75 MG/0.; -VICTOZA 2-0.6 MG/0.1 SUB-Q; -VISTARIL25 MG PO; -VITAMIN D-32000 UNIT PO; -VITAMIN D32000 UNIT PO; -WELLBUTRIN XL150 MG PO; -ZOFRAN ODT4 MG SL; -ZOFRAN8 MG PO; -ZOLOFT25 MG PO
[2024-05-12] MEDS ORDERED: MIDAZOLAM HCL 2 MG/2 ML VIAL ONE (06:53)
[2024-05-12] MEDS ORDERED: Ropivacaine HCl 0.5% 30 ML VIAL ONE (06:53)
[2024-05-12] MEDS ORDERED: dexmedeTOMIDine HCl 200 MCG/2 ML VIAL ONE (06:56)
[2024-05-12] MEDS ORDERED: LIDOCAINE HCL 2% 5 ML SDV ONE ×2 (06:56→07:15)
[2024-05-12] MEDS ORDERED: DEXAMETHASONE SOD PHOS 4 MG/ML VIAL ONE ×2 (06:56→07:15)
[2024-05-12] MEDS ORDERED: CEFAZOLIN SODIUM 2 GM/20 ML SYR IV SCH (07:00)
[2024-05-12] MEDS ORDERED: LIDOCAINE HCL 1% 5 ML SDV INJ ONE (07:00)
[2024-05-12] MEDS ORDERED: IBLOOD GLUCOSE TEST STRIP 1 EA TEST VI PRN ×2 (07:00→07:45)
[2024-05-12] MEDS ORDERED: propofoL 200 MG/20 ML VIAL ONE (07:15)
[2024-05-12] MEDS ORDERED: ondansetron HCL 4 MG/2 ML VIAL ONE (07:15)
--- NOTE | 2024-05-12 07:29 | NUR ---
PT GONE FOR PROCEDURE. PROVIDED PRAYER.
[2024-05-12] MEDS ORDERED: fentaNYL citrate 100 MCG/2 ML VIAL ONE (07:31)
[2024-05-12] MEDS ORDERED: ACETAMINOPHEN 1,000 MG/100 ML VIAL ONE (07:34)
[2024-05-12] MEDS ORDERED: droPERidol 5 MG/2 ML VIAL IV PRN (07:45)
[2024-05-12] MEDS ORDERED: fentaNYL citrate 50 MCG/ML SDV IV PRN (07:45)
[2024-05-12] MEDS ORDERED: NALOXONE HCL 0.4 MG SYR IV PRN ×2 (07:45→08:00)
[2024-05-12] MEDS ORDERED: ondansetron HCL 4 MG/2 ML VIAL IV PRN (07:45)
[2024-05-12] MEDS ORDERED: KETOROLAC TROMETHAMINE 30 MG/ML VIAL IV PRN (07:45)
[2024-05-12] MEDS ORDERED: HYDROCODONE/ACETA 7.5/325 TAB PO PRN (08:00)
[2024-05-12] MEDS ORDERED: KETOROLAC TROMETHAMINE 10 MG TAB PO SCH (08:00)
--- NOTE | 2024-05-12 08:32 | NUR ---
05/12/24 0832 Elisabeth Zepeda 0757 PT ARRIVED TO PACU ON 6L VIA MASK, RESP EVEN AND UNLABORED. 0803 PT WAKES EASILY TO VERBAL STIMULI AND PT DENIES PAIN AND NAUSEA. O2 REMOVED. PT EASILY FALLS BACK TO SLEEP. 0808 O2 DECREASED TO 89 AND 2L NC PLACED. DEEP BREATHING ENCOURAGED. O2 INCREASED TO MID 90S. 0816 PAIN MEDICATION GIVEN PER EMAR, PT REPORTS 02/03. 0824 PT REPORTS NO CHANGE IN PAIN, MEDICATION GIVEN. 0830 HOB INCREASED AND PT SIPPING WATER AND PLAN OF CARE DISCUSSED.
--- NOTE | 2024-05-12 08:41 | NUR ---
PT BACK FROM PACU. ALERT AND AWAKE REPORTS THROBBING PAIN /10, WILL TALK TO TRACY PRODUCTION SUPPORT ENGINEER ABOUT REBLOCKING HER. PT ON O2 2L VIA NASAL CANNULA. WARM BLANKETS PLACED ON PT.CALL LIGHT WITHIN REACH.
--- NOTE | 2024-05-12 08:48 | NUR ---
PT ABLE TO MOVE FINGERS ON LT HAND REPORTS LT ARM FEELS HEAVY BUT SHE REPORT ITS PAINFULL 4/10 PAIN.
--- NOTE | 2024-05-12 08:57 | NUR ---
PT DENIES NAUSEA, CONTINUES TO REPORT PAIN FROM ELBOW TO FINGER TIPS AT 4/10 NORCO GIVEN PT EATING CRACKERS AND JELLO TOLERATES WELL.
--- NOTE | 2024-05-12 09:14 | NUR ---
O2 TURNED OFF PT MAINTAINS SATS ABOVE 95% ON ROOM AIR
[2024-05-12 09:49] VITALS: BP 133/66
--- NOTE | 2024-05-12 09:50 | NUR ---
LAWRENCE CNC PROGRAMMER IN ROOM TO REBLOCK PT. AXILLARY BLOCK DONE PT TOLERATED WELL.
--- NOTE | 2024-05-12 10:43 | NUR ---
PT REPORTS PAIN IS RELEIVED. SHE STATED HER LEFT ARM IS COMPLETLY NUMB. SHE IS NOT ABLE TO MOVE FINGERS, CAP REFILL LESS THAN 1 SECOND, PULSE PRESENT AND NORMAL. PT AMBULATED TO BATHROOM SHE IS ABLE TO VOID 300ML OF CLEAR YELLOW URINE. DISCHARGE INSTRUCTIONS GIVEN TO PT SHE VOICED UNDERSTANDING. PT INSTRUCTED THAT IF LT ARM GOES NUMB AGAIN AFTER REGAINING FULL FUNCTION AND BLOCK WEARING OFF, SHE NEEDS TO GO TO ER. PT WAS ABLE ABLE TO DRESS WITH MINIMAL ASSIST.
--- NOTE | 2024-05-12 11:25 | OR ---
[facility] [address] [place], [place] [address] Signed DATE OF OPERATION: 05/12/2024 SURGEON: Connie Doe MD PREOPERATIVE DIAGNOSIS: Lateral epicondylitis, chronic left. POSTOPERATIVE DIAGNOSIS: Lateral epicondylitis, chronic left. PROCEDURE PERFORMED: Left lateral epicondylar debridement with shingling. BIOSTATISTICS TEACHER: None. ANESTHESIA: General. BLOOD LOSS: None. TOURNIQUET TIME: 18 minutes. BRIEF HISTORY: Monet is a 53-year-old female with chronic pain in her left elbow. This has been treated with injections, physical therapy and with no significant relief. Risks, benefits, and alternatives of operative treatment were discussed with her and she elected to proceed. DESCRIPTION OF OPERATION: Once consent was obtained, she was taken to the operating room. After adequate anesthesia, she was placed on the operating room table with the hand table. The arm was prepped and draped in a standard sterile fashion up to a well-padded proximal arm tourniquet. The arm was then prepped and draped in a standard sterile fashion and exsanguinated using Esmarch bandage. Tourniquet inflated to 200 mmHg. A 4 cm incision was centered over the lateral epicondyle and taken through the skin and subcutaneous tissue. The extensor origin was then split longitudinally and elevated off the epicondyle. There were several areas of degenerated tendon that were removed sharply Electronically Signed By: CONNIE DOE MD 05/12/24 1125 PATIENT NAME: MONET JOYNER OPERATIVE REPORT DATE OF : 66 REPORT #: [id number] PHYSICIAN: CONNIE DOE MD PCP: ELHAM RAMIREZ MD REPORT IS CONFIDENTIAL AND NOT TO BE RELEASED WITHOUT AUTHORIZATION [facility] [address] [place] [id number] Signed using the rongeur. There was actually a bit of a bone spur in the posterior superior aspect of the epicondyle, this was removed. The tendon was thoroughly debrided and the epicondyle was then shingled lightly using the osteotome. The tendon was then sutured back into position using 2-0 Vicryl, the subcutaneous tissue with 3-0 Monocryl and the skin with 3-0 Stratafix. Wound was then sealed with LiquiBand Steri-Strips, dressed with Allevyn and a posterior splint. She tolerated the procedure well. All sponge, needle, and instrument counts were correct. Connie Doe MD BA/WILMAL /[id number] Copies: ~ Electronically Signed By: CONNIE DOE MD 05/12/24 1125 PATIENT NAME: MONET JOYNER OPERATIVE REPORT DATE OF : 66 REPORT #: [id number] PHYSICIAN: CONNIE DOE MD PCP: ELHAM RAMIREZ MD REPORT IS CONFIDENTIAL AND NOT TO BE RELEASED WITHOUT AUTHORIZATION
== END 2024-05-12 10:45 | disposition home or self-care (01) ==
LOC: DS 05:40
PROVIDERS: ATTEND Specialist
PROC: 0PBG0ZZ Excision of Left Humeral Shaft, Open Approach (ICD-10-PCS; principal; 2024-05-12)
DX: M77.12 Lateral epicondylitis, left elbow (principal); K21.9 Gastro-esophageal reflux disease without esophagitis; E11.9 Type 2 diabetes mellitus without complications; E66.01 Morbid (severe) obesity due to excess calories; Z68.36 Body mass index [BMI] 36.0-36.9, adult; Z88.8 Allergy status to other drugs, medicaments and biological substances; Z79.84 Long term (current) use of oral hypoglycemic drugs; Z79.899 Other long term (current) drug therapy
CPT/HCPCS: 01740; 64417; A9270; J0131; J0690; J1100; J1885; J2001; J2250; J2405; J2704; J2795; J3010; J7121

== ENCOUNTER 2025-02-16 08:26 | Day surgery (SDC) | payer OTHER ==
[~2025-02-16] VITALS: Ht 162.6 cm; Wt 104.1 kg
[~2025-02-16 08:26] MED LIST changes: +ALEVE220 MG PO; +AMBIEN10 MG PO; +AMITRIPTYLINE H25 MG PO; +BACLOFEN10 MG PO; +BENADRYL25 MG PO; +BUPRENO-NALOX1 EACH SL; +BUPRENORPHINE1 EAC4 TD; +BUPROPION XL450 MG PO; +BUTALB-ACETAMI1 EACH PO; +CEFAZOLIN SODIUM 2 GM/20 ML SYR IV SCH; +CYMBALTA60 MG PO; +DILAUDID4 MG PO; +ESGIC PLUS CAP1 EACH PO; +ESTRACE0.5 MG PO; +FIORICET 50-301 EACH PO; +FIORINAL 50-321 EACH PO; +GABAPENTIN300 MG; +GABAPENTIN300 MG PO; +GABAPENTIN600 MG PO; +GLUCOPHAGE500 MG PO; +GRALISE600 MG PO; +HYDROCHLOROTHIA25 MG PO; +HYDROCODON-ACE1 EA11 PO; +HYDROCODON-ACE1 EAC8 PO; +IBLOOD GLUCOSE TEST STRIP 1 EA TEST VI PRN; +IBU800 MG PO; +KETOROLAC TROME10 MG PO; +KLOR-CON 88 MEQ PO; +LASIX40 MG PO; +LEVOTHYROXINE125 MCG PO; +LEVOXYL25 MCG PO; +LIDOCAINE HCL 1% 5 ML SDV INJ ONE; +LIDODERM700 MG TOP; +LYRICA150 MG PO; +MAG DELAY64 MG PO; +MAG-OXIDE400 MG PO; +MAGBID ER84 MG PO; +MAGNESIUM30 MG PO; +MAXZIDE 75 MG-501 EA PO; +MELOXICAM15 MG PO; +MELOXICAM7.5 MG PO; +METFORMIN HCL500 M1 PO; +METFORMIN HCL500 MG PO; +METOPROLOL SUCC50 MG PO; +METOPROLOL TART50 MG PO; +MIRAPEX ER1.5 MG PO; +MORPHINE SULFAT15 MG PO; +OMEPRAZOLE20 MG PO; +ONDANSETRON ODT8 MG SL; +OXYCODONE HCL20 M1 PO; +OXYCODONE HCL5 MG PO; +OXYCODONE-ACET1 EAC3 PO; +OXYMORPHONE HCL10 MG PO; +PERCOCET 10-321 EACH PO; +PERCOCET 5-3251 EACH PO; +PRAMIPEXOLE0.125 MG PO; +PRILOSEC OTC20 MG PO; +PRILOSEC20 MG PO; +PROCHLORPERAZIN10 MG PO; +PROGESTERONE200 MG PO; +PROMETHAZINE HC25 M1 PO; +PROTONIX40 MG PO; +SLOW-MAG71.5 MG PO; +SPRINTEC1 EACH PO; +TERAZOSIN HCL2 MG PO; +TIZANIDINE HCL2 M1 PO; +TORADOL10 MG PO; +TRAZODONE HCL100 MG PO; +TRULICITY0.75 MG/0.; +TUMS ULTRA STR470 MG PO; +VICTOZA 2-0.6 MG/0.1 SUB-Q; +VISTARIL25 MG PO; +VITAMIN B121000 MCG PO; +VITAMIN D-32000 UNIT PO; +VITAMIN D32000 UNIT PO; +WELLBUTRIN XL150 MG PO; +ZOFRAN ODT4 MG SL; +ZOFRAN8 MG PO; +ZOLOFT25 MG PO
[2025-02-16 08:40] VITALS: BP 174/84
[2025-02-16] MEDS ORDERED: LIDOCAINE HCL 0.5% 50 ML SDV ONE (10:28)
[2025-02-16] MEDS ORDERED: ondansetron HCL 4 MG/2 ML VIAL ONE (10:28)
[2025-02-16] MEDS ORDERED: MIDAZOLAM HCL 2 MG/2 ML VIAL ONE (10:28)
[2025-02-16] MEDS ORDERED: propofoL 200 MG/20 ML VIAL ONE (10:28)
[2025-02-16] MEDS ORDERED: fentaNYL citrate 100 MCG/2 ML VIAL ONE (10:29)
[2025-02-16] MEDS ORDERED: IBLOOD GLUCOSE TEST STRIP 1 EA TEST VI PRN (10:30)
[2025-02-16] MEDS ORDERED: fentaNYL citrate 50 MCG/ML SDV IV PRN (10:30)
[2025-02-16] MEDS ORDERED: ondansetron HCL 4 MG/2 ML VIAL IV PRN (10:30)
[2025-02-16] MEDS ORDERED: NALOXONE HCL 0.4 MG SYR IV PRN (10:30)
[2025-02-16] MEDS ORDERED: droPERidol 5 MG/2 ML VIAL IV PRN (10:30)
[2025-02-16] MEDS ORDERED: HYDROCODONE/ACETA 5/325 TAB PO PRN (10:45)
[2025-02-16] MEDS ORDERED: HYDROCODON-ACE1 EA10 PO (11:21)
--- NOTE | 2025-02-16 11:25 | NUR ---
02/16/25 1125 Leta Doe PT TO PACU AWAKE AND ALERT DENIES PAIN AND NAUSEA. PT CONVERSING WITH STAFF.
[2025-02-16 11:46] VITALS: BP 148/76
--- NOTE | 2025-02-17 08:28 | OR ---
[facility] [address] [place], [place] [address] Signed DATE OF OPERATION: 02/16/2025 SURGEON: Connie Doe MD PREOPERATIVE DIAGNOSIS: Left trigger thumb. POSTOPERATIVE DIAGNOSIS: Left trigger thumb. PROCEDURE PERFORMED: Left trigger thumb release. AUTOMOBILE WRECKER: None. ANESTHESIA: [place] block. TOURNIQUET TIME: 13 minutes. BRIEF HISTORY: Monet is a 54-year-old female with painful locking in her thumb. Risks and benefits of operative treatment were discussed with her and she elected to proceed. DESCRIPTION OF PROCEDURE: Once consent was obtained she was taken to the operating room and left on the day surgery bed. Hand table was brought in. The hand was prepped and draped in a standard sterile fashion. After establishing the Frantz block, the A1 rolf of the thumb was then approached through a 1 cm transverse incision. This was carried through skin and subcutaneous tissue. Care was taken to locate, protect and retract the nerve. The flexor tendon sheath was then identified and dissected free of overlying soft tissue under loupe magnification. The A1 rolf was then released. The patient was asked to move her thumb. She is able to fully flex, fully extend with no locking or triggering. The wound was then copiously irrigated with normal saline, closed with 3-0 nylon and injected with 3 mL 0.25% Marcaine. The wound was then dressed with bacitracin, Adaptic, 4 x 8s, and gauze. She tolerated the procedure well. All sponge, needle, and instrument counts were correct. Electronically Signed By: CONNIE DOE MD 02/17/25 0828 PATIENT NAME: MONET JOYNER OPERATIVE REPORT DATE OF : 66 REPORT #: [id number] PHYSICIAN: CONNIE DOE MD PCP: ELHAM RAMIREZ MD REPORT IS CONFIDENTIAL AND NOT TO BE RELEASED WITHOUT AUTHORIZATION [address] [place] [address] Signed Connie Doe MD BA/WILMAL /[id number] Copies: ~ Electronically Signed By: CONNIE DOE MD 02/17/25 0828 PATIENT NAME: MONET JOYNER OPERATIVE REPORT DATE OF : 66 REPORT #: [id number] PHYSICIAN: CONNIE DOE MD PCP: ELHAM RAMIREZ MD REPORT IS CONFIDENTIAL AND NOT TO BE RELEASED WITHOUT AUTHORIZATION
== END 2025-02-16 11:55 | disposition home or self-care (01) ==
LOC: DS 08:26
PROVIDERS: ATTEND Specialist
PROC: 0LN80ZZ Release Left Hand Tendon, Open Approach (ICD-10-PCS; principal; 2025-02-16 10:30)
DX: M65.312 Trigger thumb, left thumb (principal); G47.33 Obstructive sleep apnea (adult) (pediatric); E11.9 Type 2 diabetes mellitus without complications; K21.9 Gastro-esophageal reflux disease without esophagitis; Z88.8 Allergy status to other drugs, medicaments and biological substances; Z79.899 Other long term (current) drug therapy
CPT/HCPCS: J0690; J2250; J2405; J2704; J3010; J7121

== ENCOUNTER 2025-07-30 08:50 | Day surgery (SDC) | payer OTHER ==
[~2025-07-30] VITALS: Ht 162.6 cm; Wt 99.0 kg
[~2025-07-30 08:50] MED LIST changes: +ADULT ONE DAI200 MCG PO; +BEET ROOT-TART1 EACH PO; +CEFAZOLIN SODIUM 2 GM in SODIUM CHLORIDE 0.9% 100 ML IV SCH; -CEFAZOLIN SODIUM 2 GM/20 ML SYR IV SCH; -ESTRACE0.5 MG PO; +ESTRADIOL1 MG PO; +HYDROCODON-ACE1 EA10 PO; +KETOROLAC TROMETHAMINE 15 MG/ML VIAL IV PRN; +MAGNESIUM OXID400 M1 PO; +NORVASC2.5 MG PO; +OXYCODONE/APAP 5/325 TAB PO PRN; +PHENAZOPYRIDINE HCL 100 MG TAB PO PRN; +TOPROL XL25 MG PO; +TRAMADOL HCL 50 MG TAB PO PRN
[2025-07-30] MEDS ORDERED: LIDOCAINE HCL 2% 5 ML SDV ONE (09:02)
[2025-07-30 09:16] VITALS: BP 140/70
[2025-07-30] MEDS ORDERED: KETOROLAC TROMETHAMINE 30 MG/ML VIAL ONE (11:23)
--- NOTE | 2025-07-30 12:07 | NUR ---
07/30/25 1207 Jerrica Hyatt 1157: PT ARRIVED TO PACU VIA STRETCHER. PT ON 6L VIA MASK. PT NON AROUSABLE AT THIS TIME. 1205: PT REMAINS NON AROUSABLE AND ON 6L VIA MASK AT THIS TIME.
[2025-07-30 12:32] VITALS: BP 116/72
== END 2025-07-30 12:45 | disposition home or self-care (01) ==
LOC: DS 08:50
PROVIDERS: ATTEND Urology
PROC: 0TVD3ZZ Restriction of Urethra, Percutaneous Approach (ICD-10-PCS; principal; 2025-07-30 11:05)
DX: N39.3 Stress incontinence (female) (male) (principal); N36.42 Intrinsic sphincter deficiency (ISD); N32.81 Overactive bladder; K21.9 Gastro-esophageal reflux disease without esophagitis; I10 Essential (primary) hypertension; E11.9 Type 2 diabetes mellitus without complications; Z88.8 Allergy status to other drugs, medicaments and biological substances; Z79.84 Long term (current) use of oral hypoglycemic drugs; Z79.899 Other long term (current) drug therapy
CPT/HCPCS: 00910; J0688; J1885; J2003; J2405; J2704; J7121; L8606

== ENCOUNTER 2025-08-08 09:27 | Day surgery (SDC) | payer OTHER | END 2025-08-08 13:10 | disposition home or self-care (01) | LOC: DS 09:27 | PROC: 0DB48ZX Excision of Esophagogastric Junction, Via Natural or Artificial Opening Endoscopic, Diagnostic (ICD-10-PCS; principal; 2025-08-08) | PROC: 0DB68ZX Excision of Stomach, Via Natural or Artificial Opening Endoscopic, Diagnostic (ICD-10-PCS; 2025-08-08) | DX: K29.50 Unspecified chronic gastritis without bleeding (principal); K21.00 Gastro-esophageal reflux disease with esophagitis, without bleeding; K31.7 Polyp of stomach and duodenum; K44.9 Diaphragmatic hernia without obstruction or gangrene; E11.9 Type 2 diabetes mellitus without complications; I10 Essential (primary) hypertension; E03.9 Hypothyroidism, unspecified; Z88.8 Allergy status to other drugs, medicaments and biological substances; Z79.84 Long term (current) use of oral hypoglycemic drugs; Z79.899 Other long term (current) drug therapy ==

== ENCOUNTER 2025-08-09 14:46 | Emergency (ER) | payer OTHER | END 2025-08-09 18:37 | disposition home or self-care (01) | LOC: ED 14:46 | DX: K52.9 Noninfective gastroenteritis and colitis, unspecified (principal); E11.9 Type 2 diabetes mellitus without complications; I10 Essential (primary) hypertension; Z88.5 Allergy status to narcotic agent; Z79.899 Other long term (current) drug therapy ==

== ENCOUNTER 2025-09-07 07:41 | Day surgery (SDC) | payer OTHER ==
[~2025-09-07 07:41] MED LIST changes: +FARXIGA5 MG PO; -KETOROLAC TROMETHAMINE 15 MG/ML VIAL IV PRN; +MIRABEGRON ER50 MG PO; -OXYCODONE/APAP 5/325 TAB PO PRN; -PHENAZOPYRIDINE HCL 100 MG TAB PO PRN; -TRAMADOL HCL 50 MG TAB PO PRN
[2025-09-07 08:07] VITALS: BP 125/66
[2025-09-07] MEDS ORDERED: MIDAZOLAM HCL 2 MG/2 ML VIAL ONE (09:36)
[2025-09-07] MEDS ORDERED: LIDOCAINE HCL 0.5% 50 ML SDV ONE (09:36)
[2025-09-07] MEDS ORDERED: HYDROCODONE/ACETA 5/325 TAB PO PRN (09:45)
[2025-09-07] MEDS ORDERED: HYDROCODON-ACE1 EA10 PO (10:30)
[2025-09-07] MEDS ORDERED: fentaNYL citrate 50 MCG/ML SDV IV PRN (10:30)
[2025-09-07] MEDS ORDERED: NALOXONE HCL 0.4 MG SYR IV PRN (10:30)
[2025-09-07] MEDS ORDERED: IBLOOD GLUCOSE TEST STRIP 1 EA TEST VI PRN (10:30)
--- NOTE | 2025-09-07 11:02 | NUR ---
09/07/25 1102 Duane,Elisabeth 1029 PT ARRIVED TO PACU ON 6L VIA MASK, PT AWAKE EASILY AND ASKED FOR HOB TO INCREASED. HOB INCREASED. PT REORIENTED TO PACU AND PT DENIES CONCERNS. 1032 O2 REMOVED AND PLAN OF CARE DISCUSSED. 1045 PT RESTING AND O2 DECREASED TO 85-88%. DEEP BREATHING ENCOURAGED OFF AND ON. O2 INCREASES WITH DEEP BREATHING. 1100 PT RESTING AND O2 DECREASED BUT INCREASES WITH NO STIMULI. PT USES CPCP AT HOME. PT VERBALIZED UNDERSTANDING OF USING CPAP TODAY.
[2025-09-07 11:03] VITALS: BP 110/53
--- NOTE | 2025-09-09 16:20 | OR ---
[facility] [address] [place], [place] [address] Signed DATE OF OPERATION: 09/07/2025 SURGEON: Connie Doe MD PREOPERATIVE DIAGNOSIS: Trigger finger, left index. POSTOPERATIVE DIAGNOSIS: Trigger finger, left index. PROCEDURE PERFORMED: Left trigger finger release, left index. ANTIQUE REFINISHER: None. ANESTHESIA: Pam block. TOURNIQUET TIME: 20 minutes. BRIEF HISTORY: Monet is a 55-year-old female who has with triggering or locking in her index finger. Risks and benefits of operative treatment were discussed with her and she elected to proceed. DESCRIPTION OF PROCEDURE: Once consent was obtained she was taken to the operating room, left on day surgery bed, hand table was brought in after pam block was established. The hand was prepped and draped in a standard sterile fashion. A 1 cm incision was made in the distal palmar crease at the index metacarpal. This was carried through skin and subcutaneous tissue. The flexor tendon sheath was identified and dissected free of overlying soft tissue. A1 rolf was identified under loupe magnification. It was released using tenotomy scissors. The patient was asked to move her finger. She was able to fully flex and extend, however, she did have a bit of triggering so released a little bit further distal. She was then able to fully flex and fully extend without any triggering or locking. Wound was copiously irrigated with normal saline, closed with 3-0 nylon, injected with 3 mL 0.25% Marcaine. Wound was dressed with bacitracin, Adaptic, 4 x 8s, and gauze. She tolerated the procedure well. All sponge, needle, and instrument counts Electronically Signed By: CONNIE DOE MD 09/09/25 8460 PATIENT NAME: MONET JOYNER OPERATIVE REPORT DATE OF : 66 REPORT #: [id number] PHYSICIAN: CONNIE DOE MD PCP: ELHAM RAMIREZ MD REPORT IS CONFIDENTIAL AND NOT TO BE RELEASED WITHOUT AUTHORIZATION [address] [place], [place] [address] Signed correct. Connie Doe MD BA/MODL /[id number] Copies: ~ Electronically Signed By: CONNIE DOE MD 09/09/25 1620 PATIENT NAME: MONET JOYNER OPERATIVE REPORT DATE OF : 66 REPORT #: [id number] PHYSICIAN: CONNIE DOE MD PCP: ELHAM RAMIREZ MD REPORT IS CONFIDENTIAL AND NOT TO BE RELEASED WITHOUT AUTHORIZATION
== END 2025-09-07 11:17 | disposition home or self-care (01) ==
LOC: DS 07:41
PROVIDERS: ATTEND Specialist
PROC: 0LN80ZZ Release Left Hand Tendon, Open Approach (ICD-10-PCS; principal; 2025-09-07 10:15)
DX: M65.322 Trigger finger, left index finger (principal); E11.9 Type 2 diabetes mellitus without complications; K21.9 Gastro-esophageal reflux disease without esophagitis; Z88.8 Allergy status to other drugs, medicaments and biological substances; Z91.048 Other nonmedicinal substance allergy status; Z79.899 Other long term (current) drug therapy
CPT/HCPCS: 01810; J0688; J2250; J2405; J2704; J7121